=== PATIENT | male | born 1990 | race Caucasian/White ===

== ENCOUNTER 2020-07-23 14:30 | Emergency (ER) | payer OTHER, SELFPAY ==
[2020-07-23 14:32] VITALS: BP 116/78; PULSE 70; RESP 16; TEMP 36.8; O2SAT 99; BMI 29.2
--- NOTE | 2020-07-23 16:53 | ED_ITS ---
HPI - Back Pain/Injury General Chief Complaint: Back Pain/Injury Stated Complaint: back pain Time Seen by Provider: 07/23/20 16:53 History of Present Illness HPI Narrative: Patient complains of back pain shooting into his legs for 2 years with tingling into his legs no weakness no loss of sensation no bowel or bladder problems. Initial injury was a lifting injury at work, he had been seen for epidural injections physical therapy, he had 1 visit with a surgeon who recommended wait and see if it gets better on his own. He had an MRI he says that showed herniated discs, he comes today as the pain is flaring up as a head done multiple times before since his injury 2 years ago, no new acute injury Related Data Previous Rx's Medication Instructions Recorded oxycodone-acetaminophen [Percocet] 1 tab PO Q6H PRN #14 tab 07/23/20 prednisone 60 mg PO DAILY 3 Days #9 tab 07/23/20 Allergies Allergy/AdvReac Type Severity Reaction Status Date / Time No Known Allergies Allergy Verified 07/23/20 14:35 [No Known Allergies*] Review of Systems Review of Systems: Positive for back pain radiating to the legs Negative no numbness no weakness no paresthesias no incontinence, no neck pain no chest pain no shortness of breath no abdominal pain no urinary symptoms no incontinence no burning no frequency, skin no rashes, no fever no chills Yes all other systems are reviewed and are negative PMFSH Past Medical History Source: nursing notes reviewed Medical History (Updated 07/24/20 @ 00:00 by Background Daemon) Chronic back pain Herniated disc Pinched nerve Social History Social History Advance Directives: No Advance Directives Information Provided: No Physical Exam Vital Signs: Vital Signs: Last Vital Signs Temp 98.2 F 07/23/20 14:32 Pulse 70 07/23/20 14:32 Resp 16 07/23/20 14:32 BP 116/78 07/23/20 14:32 Pulse Ox 99 07/23/20 14:32 Body Mass Index 29.2 General appearance is A&O x3, no acute distress Head is normocephalic atraumatic The neck is supple and nontender The chest is clear to auscultation with full symmetric equal breath sounds, no chest wall tenderness The heart rate and rhythm regular no murmur Abdomen soft nontender The back had lower lumbar paraspinal tenderness bilaterally, no focal bony tenderness no skin rashes no redness no warmth, there is no CVA tenderness, pain was easily reproduced with movement Extremities full range of motion x4 Neuro motor is 5/5 x4 and sensation was intact and symmetrical Course Course Course Narrative: Patient treated for musculoskeletal back pain and discharged and he will follow with [facility] where he has been seen before and his regular doctor Discharge Plan Discharge Clinical Impression: Lumbar radiculopathy Patient Disposition: Home, Self-Care Instructions: Back Pain (ED) Additional Instructions: [facility] back [facility] and your doctor Return any worse condition Prescriptions: New prednisone 20 mg tablet 60 mg PO DAILY 3 Days Qty: 9 RF: 0 oxycodone-acetaminophen [Percocet] 5-325 mg tablet 1 tab PO Q6H PRN (Reason: pain) Qty: 14 RF: 0 Interventions: ED Discharge Assessment Last Done: 07/23/20 18:09 Discharge Date/Time: 07/23/20 18:10
[2020-07-23] MEDS: predniSONE 20 MG TABLET 60 MG PO (18:00)
== END 2020-07-23 18:10 | disposition home or self-care (01) ==
PROVIDERS: Emergency Provider Emergency Medicine
DX: M54.16 Radiculopathy, lumbar region (principal); G89.29 Other chronic pain; M54.42 Lumbago with sciatica, left side; M54.41 Lumbago with sciatica, right side
CPT/HCPCS: 99283

== ENCOUNTER 2020-09-17 12:05 | Outpatient (REF) | payer OTHER, SELFPAY ==
--- NOTE | ~2020-09-17 | XR_ITS ---
EXAMINATION: XR LUMBAR SPINE: 3 VIEWS XR PELVIS: ONE VIEW CLINICAL INFORMATION: Low back pain COMPARISON: None FINDINGS / IMPRESSION Lumbar spine: No acute fracture or traumatic malalignment. Vertebral body heights and disc spaces are preserved. Sacroiliac joints unremarkable. Paraspinal soft tissues are normal. Pelvis: No fractures. Pelvic ring intact. Femoral heads are spherical. Small bilateral acetabular osteophytes. Soft tissues unremarkable.
[2020-09-17 14:04] LABS: MANUAL DIFF FLAG NO
[2020-09-17 14:14] LABS: Basophils Percent Auto 0.4 % (0-2); Eosinophils Absolute Auto 0.1 X10*3/uL (0.0-0.4); Eosinophils Percent Auto 1.2 % (0-4); Hematocrit 35.8 % (42-52); Imm Gran Abs Auto 0.02 X10*3/uL (0.00-0.03); Imm Gran Pct Auto 0.3 % (0.0-0.4); Lymphocytes Percent Auto 27.9 % (20-40); Mean Corpuscular HGB Conc 33.5 g/dl (31.0-36.0); Mean Corpuscular Hemoglobin 31.8 pg (27.0-33.0); Mean Platelet Volume 10.6 fL (9.4-12.4); Monocytes Absolute Auto 0.4 X10*3/uL (0.1-1.2); Monocytes Percent Auto 5.4 % (2-11); Neutrophils Absolute Auto 4.7 X10*3/uL (2.0-8.3); Neutrophils Percent Auto 64.8 % (45-73); Platelet Count 229 X10*3/uL (160-400); Red Blood Count 3.77 X10*6/uL (4.60-5.80); Red Cell Distribution Width 14.3 % (11.0-16.0); White Blood Count 7.3 X10*3/uL (4.8-10.8)
[2020-09-17 14:51] LABS: Erythrocyte Sedimentation Rate 12 MM/HR (0-15)
[2020-09-17 15:01] LABS: Alanine Aminotransferase 111 U/L (0-40); Albumin Level 4.9 g/dL (3.5-5.0); Alkaline Phosphatase 54 U/L (39-117); Anion Gap 18 (12-20); Aspartate Amino Transferase 88 U/L (5-37); Bilirubin Total 0.7 mg/dL (0.0-1.0); Blood Urea Nitrogen 19 mg/dL (9-16); C Reactive Protein 0.05 mg/dL (< or = 0.50); Calcium 9.6 mg/dL (8.4-10.2); Carbon Dioxide 21 mmol/L (22-29); Chloride 105 mmol/L (96-108); Estimated Glomerular Filt Rate 49; Glucose Random 66 mg/dL (60-115); Potassium 4.5 mmol/L (3.3-5.1); Sodium 139 mmol/L (135-145); Total Protein 8.8 g/dL (6.5-8.0)
[2020-09-19 21:26] LABS: TS Negative Control Passed; TS Panel A 0; TS Panel B 0; TS Positive Control Passed; TSpotTB Negative (SeeBelow)
[2020-09-20 08:17] LABS: HBsAGNum1 0.14 S/CO (0.00-0.99); Hepatitis B Surface Antigen Negative (Negative); ~HepC Num1 0.11 S/CO (0.00-0.79); ~Hepatitis C Antibody Nonreactive (Nonreactive)
[2020-09-20 08:30] LABS: Hepatitis B Core Antibody Nonreactive (Nonreactive); ~Hepatitis B Surface Antibody NONREACTIVE (Nonreactive)
[2020-09-22 08:37] LABS: HBc Num1 0.07 S/CO (0.00-0.79); Hepatitis A Antibody IgM 0.18 Index (0-0.79); ~Hepatitis A Antibody IgM Nonreactive (Nonreactive)
[2020-09-24 11:32] LABS: HLA B27 Positive (Negative)
== END 2020-09-17 12:06 | disposition home or self-care (01) ==
LOC: HO.LAB 12:05
PROVIDERS: Visit Provider Student in an Organized Health Care Education/Training Program
DX: M54.5 Low back pain (principal)
CPT/HCPCS: 36415; 72100; 72170; 80053; 85025; 85652; 86140; 86481; 86704; 86706; 86709; 86803; 86812; 87340; 99202

== ENCOUNTER 2020-09-24 09:06 | Outpatient (REF) | payer OTHER, SELFPAY ==
--- NOTE | ~2020-09-24 | US_ITS ---
EXAMINATION: US ABDOMEN COMPLETE CLINICAL INFORMATION: Abnormal liver function tests. COMPARISON: Previous CT May 2019 TECHNIQUE: Real-time imaging of the abdominal viscera. FINDINGS: PANCREAS: Not well visualized due to bowel gas. ABDOMINAL AORTA: The proximal, mid, and distal segments are normal in caliber. INFERIOR VENA CAVA: Visualized portions are normal. LIVER: Normal. The liver is normal in size. The liver contour is normal. Parenchymal echogenicity is normal. No focal hepatic lesion. There is no intrahepatic biliary duct dilatation seen. GALLBLADDER: There are gallstones in the gallbladder. The gallbladder is normal in size. The gallbladder wall is normal. There is no pericholecystic fluid. COMMON BILE DUCT: Normal in caliber measuring 0.2 cm in diameter. RIGHT KIDNEY: Normal. No hydronephrosis. No renal calculi or focal parenchymal lesions. The kidney measures 10 cm in maximum dimension. LEFT KIDNEY: Normal. No hydronephrosis. No renal calculi or focal parenchymal lesions. The kidney measures 10 cm in maximum dimension. SPLEEN: Normal. The spleen measures 9 cm in maximum dimension. FREE FLUID: None. US/US abdomen complete IMPRESSION: Gallstones. Limited visualization of the pancreas.
== END 2020-09-24 09:07 | disposition home or self-care (01) ==
LOC: HO.HMGCX 09:06
PROVIDERS: Visit Provider Student in an Organized Health Care Education/Training Program
DX: R79.89 Other specified abnormal findings of blood chemistry (principal)
CPT/HCPCS: 76700

== ENCOUNTER 2020-10-11 12:13 | Outpatient (REF) | payer OTHER, SELFPAY ==
[2020-10-11 13:44] LABS: Alanine Aminotransferase 72 U/L (0-40); Alkaline Phosphatase 51 U/L (39-117); Anion Gap 14 (12-20); Aspartate Amino Transferase 54 U/L (5-37); Bilirubin Total 0.6 mg/dL (0.0-1.0); Blood Urea Nitrogen 17 mg/dL (9-16); Calcium 9.8 mg/dL (8.4-10.2); Carbon Dioxide 29 mmol/L (22-29); Chloride 101 mmol/L (96-108); Estimated Glomerular Filt Rate 47; Glucose Random 86 mg/dL (60-115); Potassium 4.2 mmol/L (3.3-5.1); Sodium 140 mmol/L (135-145); Total Protein 8.4 g/dL (6.5-8.0)
== END 2020-10-11 12:14 | disposition home or self-care (01) ==
LOC: HO.LAB 12:13
PROVIDERS: Visit Provider Student in an Organized Health Care Education/Training Program
DX: R79.89 Other specified abnormal findings of blood chemistry (principal)
CPT/HCPCS: 36415; 80053

== ENCOUNTER → 2020-10-27 14:47 | Outpatient (BNVA) | payer OTHER, SELFPAY | PROVIDERS: Visit Provider Student in an Organized Health Care Education/Training Program | DX: M54.5 Low back pain (principal); E03.9 Hypothyroidism, unspecified; N28.9 Disorder of kidney and ureter, unspecified; R79.89 Other specified abnormal findings of blood chemistry | CPT/HCPCS: 99212 ==

== ENCOUNTER 2020-11-24 12:00 | Outpatient (REF) | payer OTHER, SELFPAY ==
[2020-11-24 14:59] LABS: Anion Gap 14 (12-20); Blood Urea Nitrogen 15 mg/dL (9-16); Calcium 9.8 mg/dL (8.4-10.2); Carbon Dioxide 29 mmol/L (22-29); Chloride 100 mmol/L (96-108); Estimated Glomerular Filt Rate 48; Glucose Random 92 mg/dL (60-115); Potassium 4.2 mmol/L (3.3-5.1); Sodium 139 mmol/L (135-145)
[2020-11-24 15:24] LABS: Free T4 (Free Thyroxine) < 0.40 ng/dL (0.71-1.85); Vitamin D 25-OH Total 14.4 ng/mL (>30)
[2020-11-24 19:45] LABS: Thyroid Stimulating Hormone > 100.00 uIU/mL (0.32-4.0)
[2020-11-25 09:11] LABS: Thyroglobulin Antibodies 200 IU/mL (< or = 1); Thyroid Peroxidase Antibodies 73 IU/mL (<9)
== END 2020-11-24 12:01 | disposition home or self-care (01) ==
LOC: HO.LAB 12:00
PROVIDERS: PCP Nurse Practitioner Family; Visit Provider Internal Medicine
DX: E03.9 Hypothyroidism, unspecified (principal); E55.9 Vitamin D deficiency, unspecified
CPT/HCPCS: 36415; 80048; 82306; 84439; 84443; 86376; 86800

== ENCOUNTER 2020-12-22 13:42 | Outpatient (REF) | payer OTHER, SELFPAY ==
[2020-12-22 15:45] LABS: Alanine Aminotransferase 60 U/L (0-40); Albumin Level 4.8 g/dL (3.5-5.0); Alkaline Phosphatase 56 U/L (39-117); Anion Gap 13 (12-20); Aspartate Amino Transferase 35 U/L (5-37); Bilirubin Total 0.6 mg/dL (0.0-1.0); Blood Urea Nitrogen 15 mg/dL (9-16); Calcium 9.8 mg/dL (8.4-10.2); Carbon Dioxide 28 mmol/L (22-29); Chloride 101 mmol/L (96-108); Estimated Glomerular Filt Rate > 60; Glucose Random 86 mg/dL (60-115); Potassium 4.1 mmol/L (3.3-5.1); Sodium 138 mmol/L (135-145); Total Protein 8.2 g/dL (6.5-8.0)
[2020-12-22 16:08] LABS: Ferritin 215 ng/mL (20-250)
[2020-12-23 21:33] LABS: Prot Elec - Albumin 4.9 g/dL (3.8-4.8); Prot Elec - Alpha1 0.2 g/dL (0.2-0.3); Prot Elec - Alpha2 0.5 g/dL (0.5-0.9); Prot Elec - Beta 1 0.4 g/dL (0.4-0.6); Prot Elec - Beta 2 0.5 g/dL (0.2-0.5); Prot Elec - Gamma 1.5 g/dL (0.8-1.7); Prot Elec - Total Protein 7.9 g/dL (6.1-8.1)
[2020-12-25 13:27] LABS: Mitochondrial Antibodies NEGATIVE (NEGATIVE)
[2020-12-27 21:02] LABS: Alpha 1 Anti-trypsin 110 mg/dL (83-199); Ceruloplasmin 22 mg/dL (18-36)
[2020-12-28 11:32] LABS: Smooth Muscle Antibody <20 U (<20)
== END 2020-12-22 13:43 | disposition home or self-care (01) ==
LOC: HO.LAB 13:42
PROVIDERS: Absent Provider Internal Medicine; PCP Nurse Practitioner Family; Referring Provider Nurse Practitioner Family; Visit Provider Physician Assistant
DX: R79.89 Other specified abnormal findings of blood chemistry (principal); E88.09 Other disorders of plasma-protein metabolism, not elsewhere classified; D64.9 Anemia, unspecified; R10.11 Right upper quadrant pain; R74.01 Elevation of levels of liver transaminase levels
CPT/HCPCS: 36415; 80053; 82103; 82390; 82728; 84155; 84165; 86255; 86256; 99212

== ENCOUNTER 2020-12-29 11:00 | Outpatient (RCR) | payer OTHER, SELFPAY ==
--- NOTE | 2020-11-26 09:05 | MHC.PT.EP ---
[facility] [place] Office [place] Office [place] Office [address] Amy Lee [address] [phone] F: [phone] F: [phone] F: [phone] F: [phone] Physical Therapy Plan of Care Date of Evaluation: Date of Surgery: Diagnosis: low back pain Assessment: 30 y/o male referred to PT with low back pain. His pain started 2 years ago while he was working. He lifted a heavy bag of cement, rotated, and felt LBP. Currently he had pain and difficulty with walking > 25min, lifting children, bending forward, donning/doffing shoes/socks, standing > 20min, and sitting > 10min. Of note, he waas diagnosed with hypothyroidism but never took his medications and now his thyroid are at critical levels. He has swollen face/ hands/ feet, reports muscular cramping, and burning B hands/feet. He will be starting thyroid medications today and therefore we held exercises today until he starts medications for one week. Examination shows decreased lumbar AROM, decreased hip/core strength, increased muscle spasm paraspinals, impaired gait pattern, and noted swelling of face/hands/feet. S/s consistent with lumbar derangement as well as noted thryoid sx. Recommend PT 2x/week for 5 weeks to address impairments, implement HEP, and optimize functional mobility. Will hold first session for 1-2 weeks for pt to take thyroid medications initially. Frequency and Duration: The patient will be seen 2x/week for 5 weeks Short Term Goals: 3 weeks 1. I with HEP 2. Pt will improve lumbar AROM to WNL 3. Pt will demonstrate log roll technique Seam Feller Goals: 5 weeks 1. I with HEP and self management of sx 2. Pt will be able to lift his children with pain < 3/10 3. Pt will be able to walk > 45min with pain < 3/10 Treatment Plan: Modalities to reduce pain, spasms and effusion. Manual therapy to restore motion and function. Therapeutic exercise to improve strength and flexibility. Neuromuscular re-education for posture and balance. Therapeutic activities to return to functional activities of daily living. Electronically signed by: Haily Blackmon PT Please sign and return to therapist. Thank you for your referral.
--- NOTE | 2021-01-06 08:23 | MHC.PT.DC ---
[facility] [place] Office [place] Office [place] Office [address] Amy Lee 140 [facility] [phone] F: [phone] F: [phone] F: [phone] F: [phone] Physical Therapy Discharge Report Diagnosis: low back pain Date of Surgery: Date of Evaluation: 11/26/20 Date of Discharge: 01/06/21 Treatments to Date: 5 Cancellations to Date: 1 No Shows to Date: 2 Discharge Status: Visit Non-compliance Discharge Summary: Pt was making good progress however d/c secondary to noncompliance with scheduling policy Electronically signed by: Haily Blackmon PT Please sign and return to therapist. Thank you for your referral.
== END 2021-11-23 13:35 | disposition home or self-care (01) ==
LOC: HO.PTCHIC 11:00
PROVIDERS: PCP Nurse Practitioner Family; Visit Provider Student in an Organized Health Care Education/Training Program
DX: M54.5 Low back pain (principal)
CPT/HCPCS: 97110; 97112; 97140; 97161; 97530

== ENCOUNTER 2021-01-17 10:06 | Outpatient (REF) | payer OTHER, SELFPAY ==
--- NOTE | ~2021-01-17 | US_ITS ---
EXAMINATION: US THYROID CLINICAL INFORMATION: Hypothyroidism COMPARISON: None TECHNIQUE: Linear transducer grayscale and color Doppler examination with attention to the region of the thyroid. FINDINGS: SIZE: Measurements of the thyroid lobes and nodules are given in sagittal, anteroposterior and transverse dimensions respectively. Right Thyroid Lobe: 4.3 x 1.2 x 1.2 cm, volume 3.2 mL. Parenchyma: The gland echotexture is heterogeneous. Thyroid vascularity is normal. Left Thyroid Lobe: 4.5 x 1.3 x 1.2 cm, volume 3.7 mL. Parenchyma: The gland echotexture is heterogeneous. Thyroid vascularity is normal. Isthmus: 0.3 cm in maximum AP dimension. No focal thyroid nodule is seen. NODES: No lymphadenopathy is seen in the tissue surrounding the thyroid gland. US/US thyroid IMPRESSION: Small heterogeneous thyroid gland suggestive of old thyroiditis. .
== END 2021-01-17 10:07 | disposition home or self-care (01) ==
LOC: HO.US 10:06
PROVIDERS: PCP Nurse Practitioner Family; Visit Provider Internal Medicine
DX: E03.9 Hypothyroidism, unspecified (principal)
CPT/HCPCS: 76536

== ENCOUNTER → 2021-03-16 13:04 | Outpatient (BNVA) | payer OTHER, SELFPAY | PROVIDERS: PCP Nurse Practitioner Family; Visit Provider Physician Assistant ==

== ENCOUNTER → 2021-04-19 08:12 | Outpatient (BNVA) | payer OTHER, SELFPAY | PROVIDERS: PCP Nurse Practitioner Family; Referring Provider Nurse Practitioner Family; Visit Provider Physician Assistant ==

== ENCOUNTER 2021-05-17 10:29 | Outpatient (REF) | payer OTHER, SELFPAY ==
[2021-05-17 10:49] LABS: MANUAL DIFF FLAG NO
[2021-05-17 11:16] LABS: Basophils Percent Auto 0.3 % (0-2); Eosinophils Absolute Auto 0.1 X10*3/uL (0.0-0.4); Eosinophils Percent Auto 1.2 % (0-4); Hemoglobin 13.2 g/dl (14.0-18.0); Imm Gran Abs Auto 0.02 X10*3/uL (0.00-0.03); Imm Gran Pct Auto 0.3 % (0.0-0.4); Lymphocytes Absolute Auto 1.5 X10*3/uL (1.2-4.9); Lymphocytes Percent Auto 22.2 % (20-40); Mean Corpuscular Volume 90.9 fL (80-98); Monocytes Absolute Auto 0.5 X10*3/uL (0.1-1.2); Monocytes Percent Auto 7.3 % (2-11); Neutrophils Absolute Auto 4.7 X10*3/uL (2.0-8.3); Neutrophils Percent Auto 68.7 % (45-73); Platelet Count 273 X10*3/uL (160-400); Red Cell Distribution Width 12.7 % (11.0-16.0); White Blood Count 6.8 X10*3/uL (4.8-10.8)
[2021-05-17 12:07] LABS: Free T4 (Free Thyroxine) 0.55 ng/dL (0.71-1.85)
[2021-05-17 12:22] LABS: Iron 70 mcg/dL (45-160); Percent Iron Saturation 33 % (15-50); Total Iron Binding Capacity 212 mcg/dL (228-428); Unsaturated Iron Binding 142 ug/dL
[2021-05-17 12:27] LABS: Folate 10.5 ng/mL (> or = 4.0); Vitamin B12 551 pg/mL (200-900)
[2021-05-17 12:40] LABS: Ferritin 114 ng/mL (20-250)
[2021-05-17 12:46] LABS: Thyroid Stimulating Hormone > 100.00 uIU/mL (0.32-4.0)
[2021-05-19 16:11] LABS: Transglutaminase IgA <1.0 U/mL
[2021-05-22 11:17] LABS: Endomysial IgA Antibody Negative (Negative)
== END 2021-05-17 10:30 | disposition home or self-care (01) ==
LOC: HO.LAB 10:29
PROVIDERS: Absent Provider Internal Medicine; PCP Nurse Practitioner Family; Visit Provider Physician Assistant
DX: E03.9 Hypothyroidism, unspecified (principal); R19.7 Diarrhea, unspecified; K62.5 Hemorrhage of anus and rectum; D64.9 Anemia, unspecified
CPT/HCPCS: 36415; 82607; 82728; 82746; 83516; 83540; 84439; 84443; 85025; 86255; 86256

== ENCOUNTER 2021-06-21 09:33 | Outpatient (REF) | payer OTHER, SELFPAY ==
[2021-06-21 10:58] LABS: Alanine Aminotransferase 26 U/L (0-40); Albumin Level 4.4 g/dL (3.5-5.0); Alkaline Phosphatase 66 U/L (39-117); Anion Gap 12 (12-20); Aspartate Amino Transferase 22 U/L (5-37); Bilirubin Total 0.7 mg/dL (0.0-1.0); Blood Urea Nitrogen 10 mg/dL (9-16); Carbon Dioxide 28 mmol/L (22-29); Chloride 103 mmol/L (96-108); Estimated Glomerular Filt Rate > 60; Glucose Random 158 mg/dL (60-115); Potassium 4.6 mmol/L (3.3-5.1); Sodium 138 mmol/L (135-145); Total Protein 7.4 g/dL (6.5-8.0)
[2021-06-21 11:07] LABS: Thyroid Stimulating Hormone 2.27 uIU/mL (0.32-4.0)
[2021-06-21 11:08] LABS: Free T4 (Free Thyroxine) 1.42 ng/dL (0.71-1.85)
== END 2021-06-21 09:34 | disposition home or self-care (01) ==
LOC: HO.LAB 09:33
PROVIDERS: Student in an Organized Health Care Education/Training Program; Absent Provider Physician Assistant; PCP Nurse Practitioner Family; Visit Provider Internal Medicine
DX: E03.9 Hypothyroidism, unspecified (principal); R79.89 Other specified abnormal findings of blood chemistry
CPT/HCPCS: 36415; 80053; 84439; 84443

== ENCOUNTER → 2021-06-22 08:31 | Outpatient (BNVA) | payer OTHER, SELFPAY | PROVIDERS: PCP Nurse Practitioner Family; Visit Provider Internal Medicine ==

== ENCOUNTER 2021-08-04 08:23 | Inpatient (IN) | payer OTHER, SELFPAY ==
--- NOTE | ~2021-08-04 | MR_ITS ---
EXAMINATION: MR ABDOMEN WITHOUT CONTRAST CLINICAL INFORMATION: Rule out common bile duct stone COMPARISON: Previous abdominal ultrasound from yesterday and CT of the abdomen and pelvis May 2018 TECHNIQUE: MR abdomen is performed without gadolinium contrast. MRCP sequences were also performed. FINDINGS: LUNG BASES: The visualized lung bases are unremarkable. LIVER, GALLBLADDER, AND BILIARY TREE: The liver is normal in size, smooth in contour, and normal in signal. No focal hepatic lesion or biliary ductal dilatation is present. The common bile duct measures 3 to 4 mm. No common bile duct stone is seen. The gallbladder is normal in size. There are gallstones in the gallbladder. The gallbladder wall is normal. There is no pericholecystic fluid. PANCREAS: Unremarkable. SPLEEN: Unremarkable. ADRENAL GLANDS: Unremarkable. KIDNEYS AND URETERS: The kidneys are normal in size and shape. No hydronephrosis. No perinephric stranding. GASTROINTESTINAL TRACT: No bowel obstruction. No ascites or fluid collection. ABDOMINAL WALL: There is a small umbilical hernia containing fat. LYMPH NODES: No lymphadenopathy. VASCULAR: Unremarkable. OSSEOUS STRUCTURES: Marrow signal normal. MR/MR abdomen wo con IMPRESSION: Gallstones. Normal caliber intra and extrahepatic bile ducts. No common bile duct stone seen.
--- NOTE | ~2021-08-04 | US_ITS ---
EXAMINATION: US ABDOMEN LIMITED CLINICAL INFORMATION: Cholelithiasis. Rule out cholecystitis. COMPARISON: Abdominal ultrasound dated from 09/24/2020. TECHNIQUE: Real-time imaging of the gallbladder. FINDINGS: Cholelithiasis without gallbladder wall thickening nor pericholecystic fluid. There is a positive Ayala's sign. No gallbladder wall polyps or masses are seen. The common bile duct is dilated measuring up to 0.8 cm. US/US abdomen limited IMPRESSION: Cholelithiasis with a positive Ayala's sign raising the possibility of acute cholecystitis in the appropriate clinical context. However, there is no associated wall thickening nor pericholecystic fluid and findings remain overall indeterminate. There is new dilatation of the common bile duct up to 0.8 cm. Consider further evaluation with an MRCP.
[2021-08-04 08:34] VITALS: BP 104/55; PULSE 52; RESP 14; TEMP 36.1; O2SAT 100; BMI 23.3
[2021-08-04 09:34] LABS: Appearance Urine HAZY; Color Urine DK YELLOW; Glucose Urine UA NEG (NEG); Leukocyte Esterase Urine NEG (NEG); Nitrite Urine NEG (NEG); PH 5.5 (5.0-8.0); Specific Gravity - Urine >= 1.030 (1.005-1.025); Urine Blood NEG (NEG); Urine Ketones NEG (NEG); Urine Protein NEG (NEG-TRACE)
[2021-08-04 15:19] VITALS: BP 92/53; PULSE 53; RESP 16; TEMP 36.9; O2SAT 100
--- NOTE | 2021-08-04 16:14 | ED.ABDPAIN ---
HPI - Abdominal Pain General Chief Complaint: Abdominal Pain Stated Complaint: abd pain Time Seen by Provider: 08/04/21 16:14 Source: patient Mode of arrival: ambulatory Limitations: no limitations History of Present Illness HPI narrative: Patient history of gallstones been having pain in right upper quadrant for last few days got worse last night and when he had some fried food associated with nausea and vomiting no fever no chills patient had sonogram done last 1 10/10 which shows gallstones Related Data Previous Rx's Medication Instructions Recorded levothyroxine 100 mcg tablet 100 mcg PO DAILY 90 Days #90 tab 06/22/21 Allergies Allergy/AdvReac Type Severity Reaction Status Date / Time No Known Allergies Allergy Verified 06/22/21 09:32 [No Known Allergies*] Review of Systems Review of Systems Yes all other systems are reviewed and are negative Physical Exam Vital Signs: Vital Signs: Last Vital Signs Temp 98.5 F 08/04/21 15:19 Pulse 53 08/04/21 15:19 Resp 16 08/04/21 15:19 BP 92/53 L 08/04/21 15:19 Pulse Ox 100 08/04/21 15:19 BMI result Body Mass Index 23.3 Appearance: Alert. Oriented X3. No acute distress. Eyes: No pallor or icterus ENT: Pharynx normal. Oral Mucosa moist Neck: Normal inspection. Neck supple. CVS: Normal heart rate and rhythm. Pulses normal. Respiratory: No respiratory distress. Equal air entry bilateral, no wheezing/rales/rhonchi Abdomen: Soft, tenderness right upper quadrant no rebound tenderness or guarding Bowel sounds are present, no mass palpable, no CVA tenderness Skin: Skin warm and dry. Normal skin color. Normal skin turgor. Extremities: No lower extremity edema. No calf tenderness Neuro: Oriented X 3. No motor deficit. MDM - Abdominal Pain MDM Narrative Medical decision making narrative: Patient with cholelithiasis with dilated CBD with elevated LFT likely obstructive. Case discussed with Dr. Simone BETTENCOURT advised to admit MRCP in the morning Medical Records Attestation: I reviewed the patient's medical records. Lab Data Attestation: I reviewed the patient's lab results. Result diagrams: 08/04/21 16:36 08/04/21 16:36 Labs: Lab Results 01/13/22 01/13/22 01/13/22 Range/Units 09:21 16:36 16:36 WBC 6.2 (4.8-10.8) X10*3/uL RBC 4.49 L (4.60-5.80) X10*6/uL Hgb 13.8 L (14.0-18.0) g/dl Hct 41.1 L (42.0-52.0) % MCV 91.5 (80.0-98.0) fL MCH 30.7 (27.0-33.0) pg MCHC 33.6 (31.0-36.0) g/dl RDW 13.1 (11.0-16.0) % Plt Count 300 (160-400) X10*3/uL MPV 9.8 (9.4-12.4) fL Immature Gran % (Auto) 0.2 (0.0-0.4) % Neut % (Auto) 62.7 (45-73) % Lymph % (Auto) 29.0 (20-40) % [place] % (Auto) 7.7 (2-11) % Eos % (Auto) 0.2 (0-4) % Baso % (Auto) 0.2 (0-2) % Lymph # (Auto) 1.8 (1.2-4.9) X10*3/uL [place] # (Auto) 0.5 (0.1-1.2) X10*3/uL Eos # (Auto) 0.0 (0.0-0.4) X10*3/uL Baso # (Auto) 0.0 (0.0-0.2) X10*3/uL Abs Immat Gran (auto) 0.01 (0.00-0.03) X10*3/uL Absolute Neuts (auto) 3.9 (2.0-8.3) x10*3/uL Absolute Nucleated RBC 0.000 (0.0-0.012) X10*3/uL Nucleated RBC % (auto) 0.0 (0.0-0.2) /100WBC Sodium 139 (135-145) mmol/L Potassium 4.6 (3.3-5.1) mmol/L Chloride 104 (96-108) mmol/L Carbon Dioxide 26 (22-29) mmol/L Anion Gap 14 (12-20) BUN 8 L (9-16) mg/dL Creatinine 0.77 (0.5-1.4) mg/dL Estim Creat Clear Calc 114.2 Estimated GFR > 60 Random Glucose 83 D (60-115) mg/dL Lactic Acid (0.5-2.0) mmol/L Calcium 9.8 (8.4-10.2) mg/dL Total Bilirubin 2.4 H (0.0-1.0) mg/dL AST 860 H (5-37) U/L ALT 895 H (0-40) U/L Alkaline Phosphatase 147 H D (39-117) U/L Total Protein 7.4 (6.5-8.0) g/dL Albumin 4.1 (3.5-5.0) g/dL Lipase 35 (8-78) U/L Urine Color DK YELLOW Urine Appearance HAZY Urine pH 5.5 (5.0-8.0) Ur Specific [place] >= 1.030 H (1.005-1.025) Urine Protein NEG (NEG-TRACE) MG/DL Urine Glucose (UA) NEG (NEG) MG/DL Urine Ketones NEG (NEG) MG/DL Urine Blood NEG (NEG) Urine Nitrite NEG (NEG) Ur Leukocyte Esterase NEG (NEG) COVID-19 (HALLIE) (Negative) COVID-19 Clin Com 08/04/21 08/04/21 Range/Units 19:58 19:58 WBC (4.8-10.8) X10*3/uL RBC (4.60-5.80) X10*6/uL Hgb (14.0-18.0) g/dl Hct (42.0-52.0) % MCV (80.0-98.0) fL MCH (27.0-33.0) pg MCHC (31.0-36.0) g/dl RDW (11.0-16.0) % Plt Count (160-400) X10*3/uL MPV (9.4-12.4) fL Immature Gran % (Auto) (0.0-0.4) % Neut % (Auto) (45-73) % Lymph % (Auto) (20-40) % [place] % (Auto) (2-11) % Eos % (Auto) (0-4) % Baso % (Auto) (0-2) % Lymph # (Auto) (1.2-4.9) X10*3/uL [place] # (Auto) (0.1-1.2) X10*3/uL Eos # (Auto) (0.0-0.4) X10*3/uL Baso # (Auto) (0.0-0.2) X10*3/uL Abs Immat Gran (auto) (0.00-0.03) X10*3/uL Absolute Neuts (auto) (2.0-8.3) x10*3/uL Absolute Nucleated RBC (0.0-0.012) X10*3/uL Nucleated RBC % (auto) (0.0-0.2) /100WBC Sodium (135-145) mmol/L Potassium (3.3-5.1) mmol/L Chloride (96-108) mmol/L Carbon Dioxide (22-29) mmol/L Anion Gap (12-20) BUN (9-16) mg/dL Creatinine (0.5-1.4) mg/dL Estim Creat Clear Calc Estimated GFR Random Glucose (60-115) mg/dL Lactic Acid 1.8 (0.5-2.0) mmol/L Calcium (8.4-10.2) mg/dL Total Bilirubin (0.0-1.0) mg/dL AST (5-37) U/L ALT (0-40) U/L Alkaline Phosphatase (39-117) U/L Total Protein (6.5-8.0) g/dL Albumin (3.5-5.0) g/dL Lipase (8-78) U/L Urine Color Urine Appearance Urine pH (5.0-8.0) Ur Specific [place] (1.005-1.025) Urine Protein (NEG-TRACE) MG/DL Urine Glucose (UA) (NEG) MG/DL Urine Ketones (NEG) MG/DL Urine Blood (NEG) Urine Nitrite (NEG) Ur Leukocyte Esterase (NEG) COVID-19 (HALLIE) Negative (Negative) COVID-19 Clin Com See Note Discharge Plan Discharge Clinical Impression: Cholecystitis, acute with cholelithiasis Qualifiers: Biliary obstruction: with biliary obstruction Qualified Code(s): K80.01 - Calculus of gallbladder with acute cholecystitis with obstruction Patient Disposition: Admitted As Inpatient [facility] Past Medical History Medical History Chronic back pain Herniated disc Pinched nerve Vitamin D deficiency Family History Family History Mother Diabetes Father Unknown family medical history Social History Social History Household Members: Family Alcohol intake: former Patient Tobacco Use Status: Never used Tobacco Advance Directives: No Advance Directives Information Provided: No Current occupational status: unemployed
[2021-08-04 16:56] LABS: Basophils Percent Auto 0.2 % (0-2); Eosinophils Percent Auto 0.2 % (0-4); Hematocrit 41.1 % (42.0-52.0); Hemoglobin 13.8 g/dl (14.0-18.0); Imm Gran Abs Auto 0.01 X10*3/uL (0.00-0.03); Imm Gran Pct Auto 0.2 % (0.0-0.4); Lymphocytes Absolute Auto 1.8 X10*3/uL (1.2-4.9); MANUAL DIFF FLAG NO; Mean Corpuscular HGB Conc 33.6 g/dl (31.0-36.0); Mean Corpuscular Hemoglobin 30.7 pg (27.0-33.0); Mean Corpuscular Volume 91.5 fL (80.0-98.0); Mean Platelet Volume 9.8 fL (9.4-12.4); Monocytes Absolute Auto 0.5 X10*3/uL (0.1-1.2); Monocytes Percent Auto 7.7 % (2-11); Neutrophils Absolute Auto 3.9 x10*3/uL (2.0-8.3); Neutrophils Percent Auto 62.7 % (45-73); Platelet Count 300 X10*3/uL (160-400); Red Blood Count 4.49 X10*6/uL (4.60-5.80); Red Cell Distribution Width 13.1 % (11.0-16.0); White Blood Count 6.2 X10*3/uL (4.8-10.8)
[2021-08-04] MEDS: 0.9 % Sodium Chloride 1,000 ML 999 ML IV (17:28)
[2021-08-04 17:42] LABS: Alanine Aminotransferase 895 U/L (0-40); Albumin Level 4.1 g/dL (3.5-5.0); Alkaline Phosphatase 147 U/L (39-117); Anion Gap 14 (12-20); Aspartate Amino Transferase 860 U/L (5-37); Bilirubin Total 2.4 mg/dL (0.0-1.0); Blood Urea Nitrogen 8 mg/dL (9-16); Calcium 9.8 mg/dL (8.4-10.2); Carbon Dioxide 26 mmol/L (22-29); Chloride 104 mmol/L (96-108); Creatinine Clr Calc Pharmacy 114.2; Estimated Glomerular Filt Rate > 60; Glucose Random 83 mg/dL (60-115); Lipase 35 U/L (8-78); Potassium 4.6 mmol/L (3.3-5.1); Sodium 139 mmol/L (135-145); Total Protein 7.4 g/dL (6.5-8.0)
--- NOTE | 2021-08-04 19:05 | PHA.MEDREC ---
Pharmacy Consult ? Medication Reconciliation Pharmacy has completed the medication reconciliation. Pt states that the only medication he takes is for his thyroid and that he is due for a refill but hasn't taken his levothyroxine in a week or two. Noemi Germain. PharmD
[2021-08-04 20:18] LABS: Lactic Acid 1.8 mmol/L (0.5-2.0)
[2021-08-04 20:24] LABS: IDNOW Serial# 9DD0AD1C
[2021-08-04 20:25] LABS: COVID-19 Test Negative (Negative)
[2021-08-04] MEDS: Piperacillin Sodium/Tazobactam 3.375 GM in 0.9 % Sodium Chloride 50 ML IV (20:28)
--- NOTE | 2021-08-04 21:40 | P.HPHOSP_ITS ---
History of Present Illness Date of Service: 08/04/21 Chief Complaint: abd pain 31 yo M with pmhx of hypothyroidism presents to the hospital with complaints of severe abdominal pain. reports pain started last night. located at the epigastric region radiating to the RUQ, associated with nausea, no vomiting. worst with eating. 05/01, constant. no relieving factors until he got to hospital and received iv medications for pain. no previous similar episode. pt denies any fever no chills. no diarrhea or constipation. no urinary sx. no sob, chest pain, no weakness, numbness or tingling. no headache or change in vision on arrival to the ED pt vitals were unremarkable but has a soft bp of 104/55 Labs sign for WBC count of 6.2, hemoglobin of 13.8, total bili of 2.4, AST of a 60, ALT of 895, alk-phos of 147 UA negative. Abdominal ultrasound showed cholelithiasis with a positive Ayala sign concerning for acute cholecystitis, there is new dilatation of the common bile duct up to 0.8 cm. Patient will be admitted for further management Review of Systems Review of Systems: Yes all other systems are reviewed and are negative [facility] Medical History Chronic back pain Herniated disc Pinched nerve Vitamin D deficiency Family History Mother Diabetes Father Unknown family medical history Social History Household Members: Family Alcohol intake: former Patient Tobacco Use Status: Never used Tobacco Advance Directives: No Advance Directives Information Provided: No Current occupational status: unemployed Meds Allergies Allergy/AdvReac Type Severity Reaction Status Date / Time No Known Allergies Allergy Verified 06/22/21 09:32 [No Known Allergies*] Physical Exam 2 Vital Signs and Narrative: Vital Signs: Last Vital Signs Temp 98.5 F 08/04/21 15:19 Pulse 53 08/04/21 15:19 Resp 16 08/04/21 15:19 BP 92/53 L 08/04/21 15:19 Pulse Ox 100 08/04/21 15:19 BMI result Body Mass Index 23.3 Const: General: cooperative and no acute distress Orientation/consciousness: patient oriented x3 Eyes: General: appearance normal, both eyes and all related structures Pupils: Equal, round and reactive pupils present Resp: Effort & Inspection: normal respiratory effort Auscultation: clear to auscultation bilaterally Cardio: Rate: regular rate Rhythm: regular rhythm GI: Other: has a right upper quadrant tenderness on deep palpation, no rebound or guarding Palpation (GI): Soft to palpation Auscultation: normal bowel sounds Skin: General skin exam: no rashes or lesions noted Neuro: General: patient oriented x3 Cranial nerves: Yes Equal, round and reactive pupils present Cognition (Neuro): normal cognition Extrem: General: Yes normal to inspection and Yes no pedal edema Results Labs CBC and Chem 7: 08/04/21 16:36 08/04/21 16:36 Labs: Laboratory Results - last 24 hr 08/04/21 08/04/21 08/04/21 09:21 16:36 16:36 MCV 91.5 MCH 30.7 MCHC 33.6 RDW 13.1 Plt Count 300 MPV 9.8 Immature Gran % (Auto) 0.2 Neut % (Auto) 62.7 Lymph % (Auto) 29.0 [place] % (Auto) 7.7 Eos % (Auto) 0.2 Baso % (Auto) 0.2 Lymph # (Auto) 1.8 [place] # (Auto) 0.5 Eos # (Auto) 0.0 Baso # (Auto) 0.0 Abs Immat Gran (auto) 0.01 Absolute Neuts (auto) 3.9 Absolute Nucleated RBC 0.000 Nucleated RBC % (auto) 0.0 Anion Gap 14 Estim Creat Clear Calc 114.2 Estimated GFR > 60 Random Glucose 83 D Lactic Acid Calcium 9.8 Total Bilirubin 2.4 H AST 860 H ALT 895 H Alkaline Phosphatase 147 H D Total Protein 7.4 Albumin 4.1 Lipase 35 Urine Color DK YELLOW Urine Appearance HAZY Urine pH 5.5 Ur Specific [place] >= 1.030 H Urine Protein NEG Urine Glucose (UA) NEG Urine Ketones NEG Urine Blood NEG Urine Nitrite NEG Ur Leukocyte Esterase NEG COVID-19 (HALLIE) COVID-19 Clin Com 08/04/21 08/04/21 19:58 19:58 MCV MCH MCHC RDW Plt Count MPV Immature Gran % (Auto) Neut % (Auto) Lymph % (Auto) [place] % (Auto) Eos % (Auto) Baso % (Auto) Lymph # (Auto) [place] # (Auto) Eos # (Auto) Baso # (Auto) Abs Immat Gran (auto) Absolute Neuts (auto) Absolute Nucleated RBC Nucleated RBC % (auto) Anion Gap Estim Creat Clear Calc Estimated GFR Random Glucose Lactic Acid 1.8 Calcium Total Bilirubin AST ALT Alkaline Phosphatase Total Protein Albumin Lipase Urine Color Urine Appearance Urine pH Ur Specific [place] Urine Protein Urine Glucose (UA) Urine Ketones Urine Blood Urine Nitrite Ur Leukocyte Esterase COVID-19 (HALLIE) Negative COVID-19 Clin Com See Note Imaging Radiologist's Impressions: Impressions Abdomen Ultrasound 08/04/21 16:54 IMPRESSION: Cholelithiasis with a positive Ayala's sign raising the possibility of acute cholecystitis in the appropriate clinical context. However, there is no associated wall thickening nor pericholecystic fluid and findings remain overall indeterminate. There is new dilatation of the common bile duct up to 0.8 cm. Consider further evaluation with an MRCP. Assessment and Plan (1) Cholecystitis, acute with cholelithiasis: Qualifiers: Biliary obstruction: with biliary obstruction Qualified Code(s): K80.01 - Calculus of gallbladder with acute cholecystitis with obstruction Status: Acute (2) Abdominal pain: Status: Acute 31-year-old male with past medical history of hypothyroidism presents to the hospital with complaints of abdominal found to have cholelithiasis with possible cholecystitis # abdominal pain - slightly secondary to cholelithiasis /cholecystitis - has dilated CBD, elevated LFTs abdominal ultrasound showed dilated CBD as well as cholelithiasis with a positive Ayala sign concering for cholecytitis - will treat with pain medication, antibitoics # Cheolelithiasis with possible cholecytitis - has murphys sign , US evidence of cholecystitis with dilated CBD - afebrile, no leukocytosis - will start IV abx - planned for MRCP/ERCP in AM - Gen surg consulted # Hypothydroidism - has not used meds in 2 wks due to loss of insurance - will resume levothyrosixne and will give script on discharge - will need follow up with PCP DVT ppx: scds in anticipation of surgical intervention/MRCP?ERCP Quality Stroke Does the patient have a stroke diagnosis?: No VTE Prior VTE?: No VTE Risk Level:: Medical - moderate - high VTE Device Contraindication: N/A - Device Ordered VTE Drug Contraindication: Treatment Not Indicated
[2021-08-04] MEDS: metroNIDAZOLE 500 MG TABLET PO (22:35)
[2021-08-04] MEDS: 0.9 % Sodium Chloride Flush 3 ML SYRINGE IVFLUSH (22:35)
[2021-08-04] MEDS: levoFLOXacin/D5W 750 MG/150 ML PIGGYBACK 100 MG IV (22:37)
[2021-08-05 00:10] VITALS: BP 96/48; PULSE 47; RESP 16; O2SAT 99
[2021-08-05] MEDS: metroNIDAZOLE 500 MG TABLET PO ×3 (06:22→22:09)
[2021-08-05] MEDS: Lactated Ringers 1,000 ML 999 ML IV (06:30)
[2021-08-05 06:36] LABS: MANUAL DIFF FLAG NO
[2021-08-05 06:43] LABS: Basophils Percent Auto 0.3 % (0-2); Eosinophils Absolute Auto 0.1 X10*3/uL (0.0-0.4); Eosinophils Percent Auto 1.4 % (0-4); Hematocrit 37.3 % (42.0-52.0); Hemoglobin 12.5 g/dl (14.0-18.0); Imm Gran Abs Auto 0.01 X10*3/uL (0.00-0.03); Imm Gran Pct Auto 0.1 % (0.0-0.4); Lymphocytes Absolute Auto 1.8 X10*3/uL (1.2-4.9); Lymphocytes Percent Auto 25.6 % (20-40); Mean Corpuscular HGB Conc 33.5 g/dl (31.0-36.0); Mean Corpuscular Hemoglobin 30.4 pg (27.0-33.0); Mean Corpuscular Volume 90.8 fL (80.0-98.0); Mean Platelet Volume 9.9 fL (9.4-12.4); Monocytes Absolute Auto 0.4 X10*3/uL (0.1-1.2); Monocytes Percent Auto 5.6 % (2-11); Neutrophils Absolute Auto 4.8 x10*3/uL (2.0-8.3); Platelet Count 282 X10*3/uL (160-400); Red Blood Count 4.11 X10*6/uL (4.60-5.80); White Blood Count 7.1 X10*3/uL (4.8-10.8)
[2021-08-05 07:08] LABS: Anion Gap 11 (12-20); Blood Urea Nitrogen 9 mg/dL (9-16); Calcium 8.9 mg/dL (8.4-10.2); Carbon Dioxide 25 mmol/L (22-29); Chloride 106 mmol/L (96-108); Creatinine Clr Calc Pharmacy 107.2; Estimated Glomerular Filt Rate > 60; Glucose Random 72 mg/dL (60-115); Potassium 4.2 mmol/L (3.3-5.1); Sodium 138 mmol/L (135-145)
[2021-08-05 07:13] VITALS: BP 95/63; PULSE 50; RESP 14; O2SAT 99
--- NOTE | 2021-08-05 07:29 | HO.PM.IMPN ---
Subjective Subjective Date of Service: 08/05/21 Interval History: abd pain Review of Systems ruq pain seems improving LFTs improving Physical Exam Vital Signs: Vital Signs: Last Vital Signs Temp 98.5 F 08/04/21 15:19 Pulse 50 08/05/21 07:13 Resp 14 08/05/21 07:13 BP 95/63 08/05/21 07:13 Pulse Ox 99 08/05/21 07:13 BMI result Body Mass Index 23.3 physical exam: Appearance: Alert.? Oriented X3.? not in distress.? cvs: rrr, [id number] , no murmur res: clear to auscultation ,no rhonchii or wheezing abd: no rebound or guarding , ruq pain seems improving, bs present. ext pulses present , no cyanosis. neuro: axo3 , nonfocal. Objective Data Active Medications Acetaminophen (Acetaminophen Supp 650 Mg Supp.Rect) 650 mg [place] Q6H PRN PRN Reason: Pain, Mild (Pain Scale 1-3) Levofloxacin (Levaquin) 750 mg in 150 mls @ 100 mls/hr IV Q24H [facility] Last Infusion: 08/05/21 00:10 Dose: 0 mls/hr Documented by: SHANTE Lactated Ringer's (Lr) 1,000 mls @ 999 mls/hr IV .Q1H1M [facility] Stop: 08/05/21 07:30 Last Infusion: 08/05/21 07:07 Dose: 0 mls/hr Documented by: SHANTE Levothyroxine Sodium (Levothyroxine Sodium 100 Mcg Tablet) 100 mcg PO DAILY [facility] Metronidazole (Metronidazole 500 Mg Tablet) 500 mg PO Q8H [facility] Last Admin: 08/05/21 06:22 Dose: 500 mg Documented by: SHANTE Morphine Sulfate (Morphine Sulfate 4 Mg/Ml Cartridge) 4 mg IVPUSH Q4H PRN; Protocol PRN Reason: Pain, Severe (Pain Scale 7-10) Ondansetron HCl (Ondansetron Hcl 4 Mg/2 Ml Vial) 4 mg IVPUSH Q8H PRN PRN Reason: Nausea and Vomiting Sodium Chloride (0.9 % Sodium Chloride Flush 3 Ml Syringe) 3 ml IVFLUSH QSHIFT [facility] Last Admin: 08/04/21 22:35 Dose: 3 ml Documented by: SHANTE Labs CBC & Chem 7: 08/05/21 06:28 08/05/21 06:28 Labs: Laboratory Results - last 24 hr 08/04/21 08/04/21 08/04/21 09:21 16:36 16:36 MCV 91.5 MCH 30.7 MCHC 33.6 RDW 13.1 Plt Count 300 MPV 9.8 Immature Gran % (Auto) 0.2 Neut % (Auto) 62.7 Lymph % (Auto) 29.0 [place] % (Auto) 7.7 Eos % (Auto) 0.2 Baso % (Auto) 0.2 Lymph # (Auto) 1.8 [place] # (Auto) 0.5 Eos # (Auto) 0.0 Baso # (Auto) 0.0 Abs Immat Gran (auto) 0.01 Absolute Neuts (auto) 3.9 Absolute Nucleated RBC 0.000 Nucleated RBC % (auto) 0.0 Anion Gap 14 Estim Creat Clear Calc 114.2 Estimated GFR > 60 Random Glucose 83 D Lactic Acid Calcium 9.8 Total Bilirubin 2.4 H AST 860 H ALT 895 H Alkaline Phosphatase 147 H D Total Protein 7.4 Albumin 4.1 Lipase 35 Urine Color DK YELLOW Urine Appearance HAZY Urine pH 5.5 Ur Specific Art >= 1.030 H Urine Protein NEG Urine Glucose (UA) NEG Urine Ketones NEG Urine Blood NEG Urine Nitrite NEG Ur Leukocyte Esterase NEG COVID-19 (HALLIE) COVID-19 Clin Com 08/04/21 08/04/21 08/05/21 19:58 19:58 06:28 MCV 90.8 MCH 30.4 MCHC 33.5 RDW 13.0 Plt Count 282 MPV 9.9 Immature Gran % (Auto) 0.1 Neut % (Auto) 67.0 Lymph % (Auto) 25.6 [place] % (Auto) 5.6 Eos % (Auto) 1.4 Baso % (Auto) 0.3 Lymph # (Auto) 1.8 [place] # (Auto) 0.4 Eos # (Auto) 0.1 Baso # (Auto) 0.0 Abs Immat Gran (auto) 0.01 Absolute Neuts (auto) 4.8 Absolute Nucleated RBC 0.000 Nucleated RBC % (auto) 0.0 Anion Gap Estim Creat Clear Calc Estimated GFR Random Glucose Lactic Acid 1.8 Calcium Total Bilirubin AST ALT Alkaline Phosphatase Total Protein Albumin Lipase Urine Color Urine Appearance Urine pH Ur Specific Art Urine Protein Urine Glucose (UA) Urine Ketones Urine Blood Urine Nitrite Ur Leukocyte Esterase COVID-19 (HALLIE) Negative COVID-19 Clin Com See Note 08/05/21 06:28 MCV MCH MCHC RDW Plt Count MPV Immature Gran % (Auto) Neut % (Auto) Lymph % (Auto) [place] % (Auto) Eos % (Auto) Baso % (Auto) Lymph # (Auto) [place] # (Auto) Eos # (Auto) Baso # (Auto) Abs Immat Gran (auto) Absolute Neuts (auto) Absolute Nucleated RBC Nucleated RBC % (auto) Anion Gap 11 L Estim Creat Clear Calc 107.2 Estimated GFR > 60 Random Glucose 72 Lactic Acid Calcium 8.9 D Total Bilirubin AST ALT Alkaline Phosphatase Total Protein Albumin Lipase Urine Color Urine Appearance Urine pH Ur Specific Art Urine Protein Urine Glucose (UA) Urine Ketones Urine Blood Urine Nitrite Ur Leukocyte Esterase COVID-19 (HALLIE) COVID-19 Clin Com Assessment and Plan (1) Abdominal pain: Status: Acute (2) Hypothyroidism: Status: Acute (3) Elevated LFTs: Status: Acute Assessment and Plan: 31-year-old male with past medical history of hypothyroidism presents to the hospital with complaints of abdominal found to have cholelithiasis with possible cholecystitis 1.abdominal pain -? slightly secondary to cholelithiasis /cholecystitis -? has dilated? CBD, elevated LFTs improvng abdominal ultrasound? showed dilated CBD as well as cholelithiasis with a positive? Ayala sign concering for cholecytitis mrcp added - will treat with pain medication, antibitoics 2. Cheolelithiasis with possible cholecytitis - has murphys sign , US evidence of cholecystitis with dilated CBD - afebrile, no leukocytosis - will start IV abx Gi and general surgery eval pending 3. Hypothydroidism- has not used meds in 2 wks due to loss of insurance - will resume levothyrosixne and will give script on discharge - will need follow up with PCP DVT ppx: scds in anticipation of surgical intervention/MRCP?ERCP Quality Stroke Does the patient have a stroke diagnosis?: No VTE Prior VTE?: No VTE Risk Level:: Medical - moderate - high VTE Device Contraindication: N/A - Device Ordered VTE Drug Contraindication: Treatment Not Indicated
[2021-08-05 08:00] VITALS: BP 119/51; PULSE 60; RESP 20; TEMP 36.6; O2SAT 99
[2021-08-05 08:17] LABS: Alanine Aminotransferase 556 U/L (0-40); Albumin Level 3.5 g/dL (3.5-5.0); Alkaline Phosphatase 122 U/L (39-117); Aspartate Amino Transferase 346 U/L (5-37); Bilirubin Direct 0.8 mg/dL (0.0-0.5); Bilirubin Total 1.9 mg/dL (0.0-1.0); Total Protein 6.1 g/dL (6.5-8.0)
[2021-08-05] MEDS: Levothyroxine Sodium 100 MCG TABLET PO (09:44)
[2021-08-05] MEDS: 0.9 % Sodium Chloride Flush 3 ML SYRINGE IVFLUSH ×3 (09:44→22:15)
--- NOTE | 2021-08-05 10:17 | P.CNGI_ITS ---
History of Present Illness Data of Consult Service Date: 08/05/21 Requesting physician: Pratik Lemon Primary Care Provider: Darci Thakur, [facility]- HPI Reason for consult: gallstones 31 yr old m HLA B27 pos, hypothyroidism, being seen for assessment of gallstones He had severe pain in the epigastric region radiating to the RUQ 0/10 in severity, worse with food, associated with nausea, but no vomiting. He denies jaundice, no marisol stools, no itching and no melena or diarrhea or constipation Labs on admission with elevated LFT total bili of 2.4, AST of a 60, ALT of 895, alk-phos of 147 and US imaging with pos Ayala sign and cholelithiasis with dilated CBD. Subsequent MRCP with nml CBD, gallstones noted. Today he feels much better and pain is very much diminished. LFT also downtrending. Review of Systems Review of Systems: Yes all other systems are reviewed and are negative Constitutional: Constitutional: Denies chills and Denies fever(s) Cardiovascular: Cardiovascular: Denies chest pain, Denies dyspnea and Denies dyspnea on exertion Respiratory: Respiratory: Denies cough, Denies dyspnea and Denies dyspnea on exertion Gastrointestinal: Gastrointestinal: Denies hematochezia and Denies change in bowel habits Genitourinary: Genitourinary: Denies hematuria and Denies difficulty urinating Musculoskeletal: Musculoskeletal: Denies back pain and Denies limited range of motion Neurologic: Denies focal weakness and Denies convulsions Psychiatric: Psychiatric: Denies depression and Denies mood swings Endocrine: Endocrine: Reports no additional endocrine complaints Hematologic/Lymphatic: Hematologic/Lymphatic: Reports no additional hematologic/lymphatic complaints [facility] Past Medical History Medical History (Updated 08/05/21 @ 13:06 by Tyler Pina MD) Chronic back pain Gallstones Herniated disc Hypothyroidism Pinched nerve Vitamin D deficiency Family History Family History Mother Diabetes Father Unknown family medical history Social History Social History Household Members: Significant Other Housing: Apartment Do you presently have visiting nurse or other home services: No Alcohol intake: former Patient Tobacco Use Status: Never used Tobacco service: No Current occupational status: unemployed Meds Allergies Allergy/AdvReac Type Severity Reaction Status Date / Time No Known Allergies Allergy Verified 06/22/21 09:32 [No Known Allergies*] Active Medications: Current Medications Acetaminophen (Acetaminophen Supp 650 Mg Supp.Rect) 650 mg [place] Q6H PRN PRN Reason: Pain, Mild (Pain Scale 1-3) Levofloxacin (Levaquin) 750 mg in 150 mls @ 100 mls/hr IV Q24H [facility] Last Infusion: 08/05/21 00:10 Dose: Infused Documented by: Levothyroxine Sodium (Levothyroxine Sodium 100 Mcg Tablet) 100 mcg PO DAILY [facility] Last Admin: 08/05/21 09:44 Dose: 100 mcg Documented by: Metronidazole (Metronidazole 500 Mg Tablet) 500 mg PO Q8H [facility] Last Admin: 08/05/21 06:22 Dose: 500 mg Documented by: Morphine Sulfate (Morphine Sulfate 4 Mg/Ml Cartridge) 4 mg IVPUSH Q4H PRN; Protocol PRN Reason: Pain, Severe (Pain Scale 7-10) Ondansetron HCl (Ondansetron Hcl 4 Mg/2 Ml Vial) 4 mg IVPUSH Q8H PRN PRN Reason: Nausea and Vomiting Sodium Chloride (0.9 % Sodium Chloride Flush 3 Ml Syringe) 3 ml IVFLUSH QSHIFT [facility] Last Admin: 08/05/21 09:44 Dose: 3 ml Documented by: Physical Exam Vital Signs: Vital Signs: Last Vital Signs Temp 97.9 F 08/05/21 08:00 Pulse 60 08/05/21 08:00 Resp 20 08/05/21 08:00 BP 119/51 L 08/05/21 08:00 Pulse Ox 99 08/05/21 08:00 BMI result Body Mass Index 23.3 Const: General: cooperative, comfortable and no acute distress Orientation/consciousness: patient oriented x3 Eyes: General: appearance normal, both eyes and all related structures Pupils: Equal, round and reactive pupils present Neck: Neck: Yes no lymphadenopathy Resp: Effort & Inspection: normal respiratory effort Auscultation: clear to auscultation bilaterally Cardio: Rate: regular rate Rhythm: regular rhythm GI: Other: No Ayala's sign, no significant tenderness in right upper quadrant Palpation (GI): Soft to palpation, nontender and no guarding Auscultation: normal bowel sounds Skin: General skin exam: no rashes or lesions noted Neuro: General: patient oriented x3 Cranial nerves: Yes Equal, round and reactive pupils present Cognition (Neuro): normal cognition Extrem: General: Yes normal to inspection and Yes no pedal edema Psych: Appearance: grossly normal Results Labs CBC & Chem 7: 08/05/21 06:28 08/05/21 06:28 Labs: Short CBC 08/04/21 08/05/21 Range/Units 16:36 06:28 WBC 6.2 7.1 (4.8-10.8) X10*3/uL Hgb 13.8 L 12.5 L (14.0-18.0) g/dl Hct 41.1 L 37.3 L (42.0-52.0) % Plt Count 300 282 (160-400) X10*3/uL BMP 08/04/21 08/05/21 16:36 06:28 Sodium 139 138 Potassium 4.6 4.2 Chloride 104 106 Carbon Dioxide 26 25 BUN 8 L 9 Creatinine 0.77 0.82 Calcium 9.8 8.9 D Liver Function 08/04/21 08/05/21 Range/Units 16:36 06:28 Total Bilirubin 2.4 H 1.9 H (0.0-1.0) mg/dL Direct Bilirubin 0.8 H (0.0-0.5) mg/dL AST 860 H 346 H (5-37) U/L ALT 895 H 556 H (0-40) U/L Alkaline Phosphatase 147 H D 122 H (39-117) U/L Albumin 4.1 3.5 (3.5-5.0) g/dL Imaging MRI - abdomen: Attestation: I personally reviewed and interpreted this imaging study as follows: My impression: gallstones, nml cbd Assessment and Plan (1) Gallstones: Status: Acute 1/ Symptomatic gallstones, seems to have had temp CBD obstruction and passed a stone. PLAN: 1/ No indication for ERCP at this time, f/u with surgical team for cholec ystectomy, will sign off, if any worsening sx or signs of CBD obstruction can refer back to GI service. Procedures Date of Service Date of Service: 08/05/21
--- NOTE | 2021-08-05 11:47 | MHC.CM.PN ---
met with pt who is idependent itu is not expected that he will require servceis when dcd pt has own transportaion home dc plan home no services
[2021-08-05 12:00] VITALS: BP 96/55; PULSE 66; RESP 18; TEMP 36.4; O2SAT 99
--- NOTE | 2021-08-05 13:02 | PM.CNGS ---
History of Present Illness Consult details Consult date: 08/05/21 Narrative: 31-year-old male admitted last night because of upper abdominal pain mostly in the epigastric area in the right upper quadrant. He says that this started about 24 hours prior to admission last night. This was constant but seemed to have worsened last night. He had some nausea because of the pain. He denies previous similar episodes. He does state that today, his pain seems to have resolved. He did not have any fever or chills. Review of Systems Constitutional: Constitutional: Denies chills and Denies fever(s) Cardiovascular: Cardiovascular: Denies chest pain, Denies dyspnea and Denies dyspnea on exertion Respiratory: Respiratory: Denies cough, Denies dyspnea and Denies dyspnea on exertion Gastrointestinal: Gastrointestinal: Denies hematochezia and Denies change in bowel habits Genitourinary: Genitourinary: Denies hematuria and Denies difficulty urinating Musculoskeletal: Musculoskeletal: Denies back pain and Denies limited range of motion Neurologic: Denies focal weakness and Denies convulsions Psychiatric: Psychiatric: Denies depression and Denies mood swings [facility] Past Medical History Medical History (Updated 08/05/21 @ 13:06 by Tyler Pina MD) Chronic back pain Gallstones Herniated disc Hypothyroidism Pinched nerve Vitamin D deficiency Family History Family History Mother Diabetes Father Unknown family medical history Social History Social History Household Members: Significant Other Housing: Apartment Do you presently have visiting nurse or other home services: No Alcohol intake: former Patient Tobacco Use Status: Never used Tobacco service: No Current occupational status: unemployed Meds Allergies Allergy/AdvReac Type Severity Reaction Status Date / Time No Known Allergies Allergy Verified 06/22/21 09:32 [No Known Allergies*] Active Medications: Current Medications Acetaminophen (Acetaminophen Supp 650 Mg Supp.Rect) 650 mg [place] Q6H PRN PRN Reason: Pain, Mild (Pain Scale 1-3) Levofloxacin (Levaquin) 750 mg in 150 mls @ 100 mls/hr IV Q24H [facility] Last Infusion: 08/05/21 00:10 Dose: Infused Documented by: Levothyroxine Sodium (Levothyroxine Sodium 100 Mcg Tablet) 100 mcg PO DAILY [facility] Last Admin: 08/05/21 09:44 Dose: 100 mcg Documented by: Metronidazole (Metronidazole 500 Mg Tablet) 500 mg PO Q8H [facility] Last Admin: 08/05/21 06:22 Dose: 500 mg Documented by: Morphine Sulfate (Morphine Sulfate 4 Mg/Ml Cartridge) 4 mg IVPUSH Q4H PRN; Protocol PRN Reason: Pain, Severe (Pain Scale 7-10) Ondansetron HCl (Ondansetron Hcl 4 Mg/2 Ml Vial) 4 mg IVPUSH Q8H PRN PRN Reason: Nausea and Vomiting Sodium Chloride (0.9 % Sodium Chloride Flush 3 Ml Syringe) 3 ml IVFLUSH QSHIFT [facility] Last Admin: 08/05/21 09:44 Dose: 3 ml Documented by: Physical Exam Vital Signs: Vital Signs: Last Vital Signs Temp 97.5 F 08/05/21 12:00 Pulse 66 08/05/21 12:00 Resp 18 08/05/21 12:00 BP 96/55 L 08/05/21 12:00 Pulse Ox 99 08/05/21 12:00 BMI result Body Mass Index 23.3 Const: General: comfortable and no acute distress Orientation/consciousness: patient oriented x3 Neck: Neck: Yes no lymphadenopathy Resp: Auscultation: clear to auscultation bilaterally Cardio: Rhythm: regular rhythm GI: Other: No Ayala's sign, no significant tenderness in right upper quadrant Palpation (GI): Soft to palpation, nontender and no guarding Neuro: General: patient oriented x3 Results Labs Result diagrams: 08/05/21 06:28 08/05/21 06:28 Labs: Abnormal lab results 08/04/21 08/04/21 08/05/21 Range/Units 16:36 16:36 06:28 RBC 4.49 L 4.11 L (4.60-5.80) X10*6/uL Hgb 13.8 L 12.5 L (14.0-18.0) g/dl Hct 41.1 L 37.3 L (42.0-52.0) % Anion Gap (12-20) BUN 8 L (9-16) mg/dL Total Bilirubin 2.4 H (0.0-1.0) mg/dL Direct Bilirubin (0.0-0.5) mg/dL AST 860 H (5-37) U/L ALT 895 H (0-40) U/L Alkaline Phosphatase 147 H D (39-117) U/L Total Protein (6.5-8.0) g/dL 08/05/21 Range/Units 06:28 RBC (4.60-5.80) X10*6/uL Hgb (14.0-18.0) g/dl Hct (42.0-52.0) % Anion Gap 11 L (12-20) BUN (9-16) mg/dL Total Bilirubin 1.9 H (0.0-1.0) mg/dL Direct Bilirubin 0.8 H (0.0-0.5) mg/dL AST 346 H (5-37) U/L ALT 556 H (0-40) U/L Alkaline Phosphatase 122 H (39-117) U/L Total Protein 6.1 L (6.5-8.0) g/dL Short CBC 08/04/21 08/05/21 Range/Units 16:36 06:28 WBC 6.2 7.1 (4.8-10.8) X10*3/uL Hgb 13.8 L 12.5 L (14.0-18.0) g/dl Hct 41.1 L 37.3 L (42.0-52.0) % Plt Count 300 282 (160-400) X10*3/uL BMP 08/04/21 08/05/21 16:36 06:28 Sodium 139 138 Potassium 4.6 4.2 Chloride 104 106 Carbon Dioxide 26 25 BUN 8 L 9 Creatinine 0.77 0.82 Calcium 9.8 8.9 D Liver Function 08/04/21 08/05/21 Range/Units 16:36 06:28 Total Bilirubin 2.4 H 1.9 H (0.0-1.0) mg/dL Direct Bilirubin 0.8 H (0.0-0.5) mg/dL AST 860 H 346 H (5-37) U/L ALT 895 H 556 H (0-40) U/L Alkaline Phosphatase 147 H D 122 H (39-117) U/L Albumin 4.1 3.5 (3.5-5.0) g/dL Urine 08/04/21 Range/Units 09:21 Urine Color DK YELLOW Urine Appearance HAZY Urine pH 5.5 (5.0-8.0) Ur Specific [place] >= 1.030 H (1.005-1.025) Urine Protein NEG (NEG-TRACE) MG/DL Urine Glucose (UA) NEG (NEG) MG/DL All other labs normal. Imaging Abdominal ultrasound report/results: report reviewed and image reviewed Assessment and Plan (1) Gallstones: Status: Acute He was admitted because of upper abdominal pain mostly epigastric area right upper quadrant. This has to have resolved completely today. His ultrasound on admission shows gallstones without radiographic evidence of cholecystitis. His bilirubin was however elevated 2.4 with an AST of 816 ALT of 890. These have all trended down today, with the his total bili now at 1.9. Overall clinical picture suggests passage of stone through the common bile duct. He is awaiting for his MRCP today. I would recommend a GI consult as well. Currently, on examination, he seems to be asymptomatic. I told him that if his MRCP shows a CBD stone, he will need to have an ERCP to remove this. He will eventually benefit cholecystectomy down the line to prevent future recurrences. I explained to him that this may be done as an inpatient or an outpatient. This will all depend on his clinical course. He will be followed by the surgical service over the weekend. He looks well overall and seems to be asymptomatic at this time. He can have clear liquids and this may be advanced as tolerated if he is not going for any ERCP. Procedures Date of Service Date of Service: 08/05/21
[2021-08-05 15:10] VITALS: BP 99/55; PULSE 65; RESP 16; TEMP 36.4; O2SAT 98
[2021-08-05 19:27] VITALS: BP 103/59; PULSE 60; RESP 18; TEMP 36.3; O2SAT 98
[2021-08-05] MEDS: levoFLOXacin/D5W 750 MG/150 ML PIGGYBACK 100 MG IV (22:14)
[2021-08-06 04:00] VITALS: BP 100/55; PULSE 64; RESP 17; TEMP 36.5; O2SAT 96
[2021-08-06] MEDS: metroNIDAZOLE 500 MG TABLET PO (04:35)
[2021-08-06 05:26] LABS: Hematocrit 39.7 % (42.0-52.0); Hemoglobin 13.1 g/dl (14.0-18.0); Mean Corpuscular Hemoglobin 30.1 pg (27.0-33.0); Mean Corpuscular Volume 91.3 fL (80.0-98.0); Platelet Count 302 X10*3/uL (160-400); Red Blood Count 4.35 X10*6/uL (4.60-5.80); Red Cell Distribution Width 12.7 % (11.0-16.0); White Blood Count 6.6 X10*3/uL (4.8-10.8)
[2021-08-06 05:51] LABS: Alanine Aminotransferase 394 U/L (0-40); Albumin Level 3.7 g/dL (3.5-5.0); Alkaline Phosphatase 114 U/L (39-117); Anion Gap 13 (12-20); Aspartate Amino Transferase 149 U/L (5-37); Bilirubin Direct 0.6 mg/dL (0.0-0.5); Bilirubin Total 1.5 mg/dL (0.0-1.0); Blood Urea Nitrogen 10 mg/dL (9-16); Calcium 9.5 mg/dL (8.4-10.2); Carbon Dioxide 25 mmol/L (22-29); Chloride 102 mmol/L (96-108); Creatinine Clr Calc Pharmacy 92.6; Estimated Glomerular Filt Rate > 60; Glucose Random 77 mg/dL (60-115); Potassium 4.4 mmol/L (3.3-5.1); Sodium 136 mmol/L (135-145); Total Protein 6.6 g/dL (6.5-8.0)
--- NOTE | 2021-08-06 07:39 | HO.PM.IMPN ---
Subjective Subjective Date of Service: 08/06/21 Interval History: cbd dilation Physical Exam Vital Signs: Vital Signs: Last Vital Signs Temp 97.7 F 08/06/21 04:00 Pulse 64 08/06/21 04:00 Resp 17 08/06/21 04:00 BP 100/55 L 08/06/21 04:00 Pulse Ox 96 08/06/21 04:00 BMI result Body Mass Index 23.3 Objective Data Active Medications Acetaminophen (Acetaminophen Supp 650 Mg Supp.Rect) 650 mg [place] Q6H PRN PRN Reason: Pain, Mild (Pain Scale 1-3) Levofloxacin (Levaquin) 750 mg in 150 mls @ 100 mls/hr IV Q24H [facility] Last Infusion: 08/05/21 23:55 Dose: 0 mls/hr Documented by: LANRE Levothyroxine Sodium (Levothyroxine Sodium 100 Mcg Tablet) 100 mcg PO DAILY [facility] Last Admin: 08/05/21 09:44 Dose: 100 mcg Documented by: DAYANA Metronidazole (Metronidazole 500 Mg Tablet) 500 mg PO Q8H [facility] Last Admin: 08/06/21 04:35 Dose: 500 mg Documented by: LANRE Morphine Sulfate (Morphine Sulfate 4 Mg/Ml Cartridge) 4 mg IVPUSH Q4H PRN; Protocol PRN Reason: Pain, Severe (Pain Scale 7-10) Ondansetron HCl (Ondansetron Hcl 4 Mg/2 Ml Vial) 4 mg IVPUSH Q8H PRN PRN Reason: Nausea and Vomiting Sodium Chloride (0.9 % Sodium Chloride Flush 3 Ml Syringe) 3 ml IVFLUSH QSHIFT [facility] Last Admin: 08/05/21 22:15 Dose: 3 ml Documented by: LANRE Labs CBC & Chem 7: 08/06/21 05:09 08/06/21 05:09 Labs: Laboratory Results - last 24 hr 08/05/21 08/06/21 08/06/21 06:28 05:09 05:09 MCV 91.3 MCH 30.1 MCHC 33.0 RDW 12.7 Plt Count 302 MPV 10.0 Absolute Nucleated RBC 0.000 Nucleated RBC % (auto) 0.0 Anion Gap 13 Estim Creat Clear Calc 92.6 Estimated GFR > 60 Random Glucose 77 Calcium 9.5 D Total Bilirubin 1.9 H 1.5 H Direct Bilirubin 0.8 H 0.6 H AST 346 H 149 H ALT 556 H 394 H Alkaline Phosphatase 122 H 114 Total Protein 6.1 L 6.6 Albumin 3.5 3.7 Microbiology Microbiology Results: Microbiology 08/04/21 19:58 Blood Culture - Preliminary Blood - Venous No growth after 24 hours. 08/04/21 19:58 Blood Culture - Preliminary Blood - Venous No growth after 24 hours. Quality Stroke Does the patient have a stroke diagnosis?: No VTE Prior VTE?: No VTE Risk Level:: Medical - moderate - high VTE Device Contraindication: N/A - Device Ordered VTE Drug Contraindication: Treatment Not Indicated
[2021-08-06 08:00] VITALS: BP 100/57; PULSE 62; RESP 18; TEMP 36.5; O2SAT 100
--- NOTE | 2021-08-06 08:38 | P.PNGS_ITS ---
Subjective Subjective Date of Service: 08/06/21 Interval history: Patient reports some mild discomfort in the right upper quadrant but generally feels much improved. He is hungry and feels he can tolerate a solid diet. He denies fever or chills. Physical Exam Vital Signs: Vital Signs: Last Vital Signs Temp 97.7 F 08/06/21 08:00 Pulse 62 08/06/21 08:00 Resp 18 08/06/21 08:00 BP 100/57 L 08/06/21 08:00 Pulse Ox 100 08/06/21 08:00 BMI result Body Mass Index 23.3 Const: General: no acute distress and well developed Nutritional Appearance: well nourished Orientation/consciousness: patient oriented x3 Limitations: no limitations Eyes: Sclerae: sclerae normal Resp: Effort & Inspection: normal respiratory effort GI: Palpation (GI): Soft to palpation, nontender, no guarding, not rigid and No Rebound tenderness present Percussion: Yes normal to percussion Rectal Exam - Male: Yes deferred Skin: General skin exam: no rashes or lesions noted Neuro: General: patient oriented x3 Extrem: General: Yes no clubbing, cyanosis or edema Objective Data Active Medications Acetaminophen (Acetaminophen Supp 650 Mg Supp.Rect) 650 mg [place] Q6H PRN PRN Reason: Pain, Mild (Pain Scale 1-3) Levofloxacin (Levaquin) 750 mg in 150 mls @ 100 mls/hr IV Q24H [facility] Last Infusion: 08/05/21 23:55 Dose: 0 mls/hr Documented by: LANRE Levothyroxine Sodium (Levothyroxine Sodium 100 Mcg Tablet) 100 mcg PO DAILY [facility] Last Admin: 08/05/21 09:44 Dose: 100 mcg Documented by: DAYANA Metronidazole (Metronidazole 500 Mg Tablet) 500 mg PO Q8H [facility] Last Admin: 08/06/21 04:35 Dose: 500 mg Documented by: LANRE Morphine Sulfate (Morphine Sulfate 4 Mg/Ml Cartridge) 4 mg IVPUSH Q4H PRN; Protocol PRN Reason: Pain, Severe (Pain Scale 7-10) Ondansetron HCl (Ondansetron Hcl 4 Mg/2 Ml Vial) 4 mg IVPUSH Q8H PRN PRN Reason: Nausea and Vomiting Sodium Chloride (0.9 % Sodium Chloride Flush 3 Ml Syringe) 3 ml IVFLUSH QSHIFT [facility] Last Admin: 08/05/21 22:15 Dose: 3 ml Documented by: LANRE Labs CBC & Chem 7: 08/06/21 05:09 08/06/21 05:09 Labs: Laboratory Results - last 24 hr 08/04/21 08/05/21 08/06/21 16:36 06:28 05:09 MCV 91.3 MCH 30.1 MCHC 33.0 RDW 12.7 Plt Count 302 MPV 10.0 Absolute Nucleated RBC 0.000 Nucleated RBC % (auto) 0.0 Sodium 139 138 Anion Gap Estim Creat Clear Calc Estimated GFR Random Glucose Calcium Total Bilirubin Direct Bilirubin AST ALT Alkaline Phosphatase Total Protein Albumin 08/06/21 05:09 MCV MCH MCHC RDW Plt Count MPV Absolute Nucleated RBC Nucleated RBC % (auto) Sodium 136 Anion Gap 13 Estim Creat Clear Calc 92.6 Estimated GFR > 60 Random Glucose 77 Calcium 9.5 D Total Bilirubin 1.5 H Direct Bilirubin 0.6 H AST 149 H ALT 394 H Alkaline Phosphatase 114 Total Protein 6.6 Albumin 3.7 Imaging MRI - abdomen: Attestation: I personally reviewed and interpreted this imaging study as follows: (Normal common bile duct, no stones) Radiologist's impression: Impressions Abdomen MRI 08/05/21 12:08 IMPRESSION: Gallstones. Normal caliber intra and extrahepatic bile ducts. No common bile duct stone seen. Microbiology Microbiology Results: Microbiology 08/04/21 19:58 Blood Culture - Preliminary Blood - Venous No growth after 24 hours. 08/04/21 19:58 Blood Culture - Preliminary Blood - Venous No growth after 24 hours. Procedures Date of Service Date of Service: 08/06/21 Progress Note: A&P Assessment and plan (1) Cholecystitis, acute with cholelithiasis: Status: Acute (2) Elevated LFTs: Status: Acute Assessment and Plan: 31-year-old male patient with complaints of abdominal pain in the right upper quadrant found to have gallstones and elevated liver function tests. He feels improved today with no nausea or vomiting. He is hungry and like to try regular (vegan) food. Liver functions are improving and his MRCP reveals no gallstones within the common bile duct. He may be discharged home today of tolerating regular diet and should follow up with Dr. Pina as an outpatient to discuss elective laparoscopic cholecystectomy. Discussed with Dr. Lemon. Fall Risk Details Current Medications: Current Medications Acetaminophen (Acetaminophen Supp 650 Mg Supp.Rect) 650 mg [place] Q6H PRN PRN Reason: Pain, Mild (Pain Scale 1-3) Levofloxacin (Levaquin) 750 mg in 150 mls @ 100 mls/hr IV Q24H [facility] Last Infusion: 08/05/21 23:55 Dose: Infused Documented by: Levothyroxine Sodium (Levothyroxine Sodium 100 Mcg Tablet) 100 mcg PO DAILY [facility] Last Admin: 08/05/21 09:44 Dose: 100 mcg Documented by: Metronidazole (Metronidazole 500 Mg Tablet) 500 mg PO Q8H [facility] Last Admin: 08/06/21 04:35 Dose: 500 mg Documented by: Morphine Sulfate (Morphine Sulfate 4 Mg/Ml Cartridge) 4 mg IVPUSH Q4H PRN; Protocol PRN Reason: Pain, Severe (Pain Scale 7-10) Ondansetron HCl (Ondansetron Hcl 4 Mg/2 Ml Vial) 4 mg IVPUSH Q8H PRN PRN Reason: Nausea and Vomiting Sodium Chloride (0.9 % Sodium Chloride Flush 3 Ml Syringe) 3 ml IVFLUSH QSHIFT [facility] Last Admin: 08/05/21 22:15 Dose: 3 ml Documented by: Time Spent With Patient Time: Total time spent is greater than 50% in coordination of care (as documented) at patient's floor/unit and/or counseling patient: Time with patient: 15 - 24 minutes Quality Stroke Does the patient have a stroke diagnosis?: No VTE Prior VTE?: No VTE Risk Level:: Medical - moderate - high VTE Device Contraindication: N/A - Device Ordered VTE Drug Contraindication: Treatment Not Indicated
[2021-08-06] MEDS: 0.9 % Sodium Chloride Flush 3 ML SYRINGE IVFLUSH (09:01)
[2021-08-06] MEDS: Levothyroxine Sodium 100 MCG TABLET PO (09:01)
--- NOTE | 2021-08-06 10:07 | MHC.CM.PN ---
PT CLEARED FOR D/C HOME SELF-CARE, PT HAS TRANSPORT HOME.
--- NOTE | 2021-08-07 15:29 | PM.DS ---
DS: Providers Provider Date of Service: 08/06/21 Date of admission: 08/04/21 21:40 Primary care physician: CIARA Carrillo Consults: 08/04/21 22:06 Consult to Gastroenterology Routine Consulting Provider: Ca Nichols Reason for consultation: ERCP Has provider been notified: Yes 08/05/21 06:38 Consult to General Surgery Routine Consulting Provider: Tyler Pina Reason for consultation: cholelithiasis with cholecystitis Has provider been notified: No DS: Diagnosis Discharge Diagnosis (1) Cholecystitis, acute with cholelithiasis: Status: Acute (2) Elevated LFTs: Status: Acute DS: Summary Hospital Course Hospital Course: date of service and dsicharge : 08/06/21. 31 yo M with pmhx of hypothyroidism presents to the hospital with complaints of severe abdominal pain. reports pain started last night. located at the epigastric region radiating to the RUQ, associated with nausea, no vomiting. worst with eating. 10/10, constant. no relieving factors until he got to hospital and received iv medications for pain. no previous similar episode. pt denies any fever no chills. no diarrhea or constipation. no urinary sx. no sob, chest pain, no weakness, numbness or tingling. no headache or change in vision on arrival to the ED pt vitals were unremarkable but has a soft bp of 104/55 Labs sign for? WBC count of 6.2, hemoglobin of 13.8, total bili of 2.4, AST of a 60, ALT of 895, alk-phos of 147 UA negative.? Abdominal ultrasound showed? cholelithiasis with a positive Ayala sign concerning for acute cholecystitis, there is new dilatation of the common bile duct up to 0.8 cm. Hospital course: patient came with abdominal pain right upper quadrant and found to have elevated LFTs- possibly had passed the CBD stone, MRCP negative. abdominal ultrasound also shows possible cholecystitis acute- started on IV antibiotics, seen by GI and surgery for above: since patient abdominal pain is resolved and LFTs are improving discussed with the surgery and GI patient will go home with p.o. antibiotics. elective cholecystectomy outpatient with Dr. Pina. avoid tylenol And other medications which can interfere with liver function. monitor LFTs with PCP outpatient. Above management discussed with the patient in detail length he understand and in agreement with the above plan, time spent 50 minutes and 50% time spent on counseling. Significant findings: As above. Procedures performed: None. Treatment and response: As above. Complications: None. Time Spent with Patient Time attestation: Total time spent providing and/or coordinating discharge services: Discharge coordination time: Greater than 30 minutes Quality: Stroke Does the patient have a stroke diagnosis?: No Physical Exam Vital Signs: Vital Signs: Last Vital Signs Temp 97.7 F 08/06/21 08:00 Pulse 62 08/06/21 08:00 Resp 18 08/06/21 08:00 BP 100/57 L 08/06/21 08:00 Pulse Ox 100 08/06/21 08:00 BMI result Body Mass Index 23.3 Appearance: Alert.? Oriented X3.? not in distress.? cvs: rrr, [id number] , no murmur res: clear to auscultation ,no rhonchii or wheezing abd: no rebound or guarding , nt, bs present. ext pulses present , no cyanosis. neuro: axo3 , nonfocal. DS: Data Data Completed and Pending Labs on day of discharge: Preliminary micro results at discharge 08/04/21 19:58 Blood Culture - Preliminary Blood - Venous No growth after 48 hours. 08/04/21 19:58 Blood Culture - Preliminary Blood - Venous No growth after 48 hours. Additional Comments Additional comments: total bilirubin: 1.5 , direct bilirubin:0.6 , ast 149, alt:394, alkaline phos: 114 Hepatitis-A IgM: Nonreactive, hepatitis-B surface antigen negative, hepatitis-B surface antibody reactive, hepatitis-B core antibody total nonreactive. Hepatitis C(EIA )antibody nonreactive. US/US abdomen limited IMPRESSION: ? Cholelithiasis with a positive Ayala's sign raising the possibility of acute cholecystitis in the appropriate clinical context. However, there is no associated wall thickening nor pericholecystic fluid and findings remain overall indeterminate. ? There is new dilatation of the common bile duct up to 0.8 cm. Consider further evaluation with an MRCP. MR/MR abdomen wo con IMPRESSION: Gallstones. Normal caliber intra and extrahepatic bile ducts. No common bile duct stone seen.? Discharge Plan Discharge Patient Disposition: Home, Self-Care Discharge Diagnosis: Acute cholecystitis, elevated LFT. Referrals: Darci Thakur FNP- [Primary Care Provider] - 1 Week Tyler Pina MD [Physician] - 1 Week (follow up outpatient) Discharge Medications: New metronidazole 500 mg Tablet 500 mg PO BID Qty: 12 RF: 0 levofloxacin 500 mg tablet 500 mg PO DAILY Qty: 6 RF: 0 Continued levothyroxine 100 mcg tablet 100 mcg PO DAILY 90 Days Qty: 90 RF: 3 Discharge Orders: Discharge Order (Routine); Ordered 08/06/21 Ordered By: Pratik Lemon Diet: advance to usual diet Activity on Discharge: As tolerated Stand Alone Forms: Patient Portal Discharge page, Work/School Release Other Ambulatory Orders: Basic Metabolic Panel (Routine) Timeframe: 1 Week Facility: [facility] - Location: Laboratory Ordered By: Pratik Lemon Liver Panel (Routine) Timeframe: 1 Week Facility: [facility] - Location: Laboratory Ordered By: Pratik Lemon Thyroid Stimulating Hormone (Routine) Timeframe: 1 Week Facility: [facility] - Location: Laboratory Ordered By: Pratik Lemon Care Plan Goals: patient came with abdominal pain right upper quadrant and found to have elevated LFTs- possibly had passed the CBD stone, MRCP negative. abdominal ultrasound also shows possible cholecystitis acute- started on IV antibiotics, seen by GI and surgery for above: since patient abdominal pain is resolved and LFTs are improving discussed with the surgery and GI patient will go home with p.o. antibiotics. elective cholecystectomy outpatient with Dr. Pina. avoid tylenol And other medications which can interfere with liver function. monitor LFTs with PCP outpatient. Health Concerns: As above. Plan of Treatment: As above. Assessment: As above. Discharge Date/Time: 08/06/21 10:28
== END 2021-08-06 10:28 | disposition home or self-care (01) ==
LOC: HO.ED 16:10 → HO.EDOVER 21:47 → HO.S3 08-05 07:02
PROVIDERS: Admitting Provider Internal Medicine; Emergency Provider Internal Medicine; PCP Nurse Practitioner Family; Visit Provider Internal Medicine
DX: K80.01 Calculus of gallbladder with acute cholecystitis with obstruction (principal); E03.9 Hypothyroidism, unspecified; Z20.822 Contact with and (suspected) exposure to COVID-19; Z79.890 Hormone replacement therapy; Z79.899 Other long term (current) drug therapy
CPT/HCPCS: 36415; 74181; 76705; 80048; 80053; 80076; 81003; 83605; 83690; 85025; 85027; 87040; 87635; 99218; 99285; J1956; J2543

== ENCOUNTER 2021-09-18 10:10 | Emergency (ER) | payer OTHER, SELFPAY ==
--- NOTE | ~2021-09-18 | US_ITS ---
EXAMINATION: US ABDOMEN LIMITED CLINICAL INFORMATION: Right upper quadrant pain. History of gallstones. COMPARISON: None TECHNIQUE: Real-time imaging of the right upper quadrant abdominal viscera. FINDINGS: PANCREAS: The pancreas is mostly obscured by gas.. LIVER: The liver is normal in size. The liver contour is normal. Parenchymal echogenicity is normal. No focal hepatic lesion. There is no intrahepatic biliary duct dilatation seen. GALLBLADDER: There are multiple echogenic shadowing mobile gallstones and in the neck of the gallbladder with no wall thickening seen. COMMON BILE DUCT: Normal in caliber measuring 0.3 cm in diameter. RIGHT KIDNEY: Normal. No hydronephrosis. No renal calculi or focal parenchymal lesions. The kidney measures 10.2 cm in maximum dimension. FREE FLUID: None. US/US abdomen limited IMPRESSION: Cholelithiasis without wall thickening. No pericholecystic fluid collection. Visualized CBD, right kidney is unremarkable. Pancreas is not optimally visualized.
[2021-09-18 10:19] VITALS: BP 106/61; PULSE 75; RESP 18; TEMP 37.7; O2SAT 100; BMI 23.3
--- NOTE | 2021-09-18 11:02 | ED_ITS ---
HPI - Abdominal Pain General Chief Complaint: Abdominal Pain Stated Complaint: Gallbladder issues Time Seen by Provider: 09/18/21 10:48 Source: patient Mode of arrival: ambulatory Limitations: no limitations History of Present Illness HPI narrative: 31-year-old male with a history of anemia, with recent admission in July for gallstones and biliary colic who presents to the ER with recurrent right upper quadrant pain and nausea that started yesterday. He reports the pain came on acutely when he was at work and he had to leave work. He reports the pain comes in waves and when it comes it is severe 10/10, causes him to be diaphoretic and extremely nauseous. Denies any episodes of vomiting or diarrhea. No fever or chills. He has not eaten red meat since his admission in July and has tried to be careful with his diet. He does admit to continuing to eat dairy and cheese. He was unable to follow-up with Dr. Pina after discharge due to insurance issues. MD elicited complaint: abdominal pain Pertinent past history: other (Gallstone) Onset (ago): day(s) (1) Pain Consistency: intermittent Location: RUQ Severity: severe Pain scale (0-10): 10 Quality: stabbing and sharp Radiation: epigastric Migration to: no migration Exacerbating factors: eating Relieving factors: nothing Context: history of similar episodes Associated symptoms: nausea Related Data Previous Rx's Medication Instructions Recorded levofloxacin 500 mg tablet 500 mg PO DAILY #6 tab 08/06/21 levothyroxine 100 mcg tablet 100 mcg PO DAILY 90 Days #90 tab 08/06/21 metronidazole 500 mg tablet 500 mg PO BID #12 tab 08/06/21 ondansetron 4 mg disintegrating 4 mg PO TID PRN #10 tab 09/18/21 tablet oxycodone 5 mg tablet 5 mg PO Q6H PRN #10 tab 09/18/21 Allergies Allergy/AdvReac Type Severity Reaction Status Date / Time No Known Allergies Allergy Verified 06/22/21 09:32 [No Known Allergies*] Review of Systems Review of Systems Constitutional: No Fever, No Chills ENT/Mouth: No sore throat, No Rhinorrhea, No Swallowing Difficulty Cardiovascular: No Chest Pain, No SOB Respiratory: No Cough, No Sputum Gastrointestinal: + Nausea, No Vomiting, No Diarrhea, + abdominal Pain, No Hematochezia, No Melena Genitourinary: No Dysuria, No Urinary Frequency, No Hematuria Musculoskeletal: No joint pain, No Myalgias Skin: No Skin Lesions, No rash Neuro: No Weakness, No Dizziness, No Headache Psych: + Anxiety/Panic, No Depression Heme/Lymph: No Bruising, No Lymphadenopathy [facility] Past Medical History Medical History (Updated 09/18/21 @ 12:08 by ASA Garrett) Chronic back pain Gallstones Herniated disc Hypothyroidism Pinched nerve Vitamin D deficiency Family History Family History Mother Diabetes Father Unknown family medical history Social History Social History Household Members: Significant Other Housing: Apartment Do you presently have visiting nurse or other home services: No Alcohol intake: former Patient Tobacco Use Status: Never used Tobacco Advance Directives: Yes Advance Directives on File: Yes Advance Directives Date on File: 08/08/21 service: No Current occupational status: unemployed Physical Exam ED Vital Signs: Vital Signs - 24 hr 09/18/21 10:19 Temperature 99.9 F Pulse Rate 75 Respiratory Rate 18 Blood Pressure 106/61 Pulse Oximetry 100 BMI result Body Mass Index 23.3 Appearance: Alert. Oriented X3. No acute distress. Eyes: Pupils equal, round and reactive to light. ENT: Pharynx normal. Neck: Normal inspection. Neck supple. CVS: Normal heart rate and rhythm. Pulses normal. Respiratory: No respiratory distress. Breath sounds normal. Abdomen: Soft with mild epigastgric and RUQ tenderness to deep palpation only, negative Ayala's sign. no RLQ tenderness. +BS x4 Skin: Skin warm and dry. Normal skin color. Normal skin turgor. No rashes. Extremities: No lower extremity edema. Neuro: Oriented X 3. No motor deficit. No sensory deficit. Course Course Course Narrative: 31-year-old male with known history of gallstones with recent admission for the same who presents to the ER with right upper quadrant abdominal pain and nausea that started yesterday. He has had no fevers or vomiting. Exam is negative Ayala sign. Doubt acute cholecystitis. Ultrasound and lab work are pending. P.o. pain meds and sublingual Zofran ordered. Will reassess. Reevaluation(s) Reevaluation #1: Ultrasound showing gallstones without any gallbladder wall thickening, no p ericholecystic fluid collection, normal common bile duct. There are multiple echogenic stones and in the neck of the gallbladder. This is most likely the cause of his pain. His LFTs are completely normal. No evidence of obstruction. He is feeling better after pain medication and Zofran. We discussed the results of his ultrasound is lab workup. He agrees to follow- up with Dr. Viramontes as for evaluation of elective cholecystectomy. Will provide short course of narcotics and antiemetics to treat this flare up. We discussed diet modifications. He is stable for discharge home with outpatient follow-up with General surgery. MDM - Abdominal Pain Lab Data Result diagrams: 09/18/21 11:35 09/18/21 11:35 Labs: Lab Results 09/18/21 09/18/21 09/18/21 Range/Units 11:35 11:35 11:35 WBC 10.2 (4.8-10.8) X10*3/uL RBC 4.37 L (4.60-5.80) X10*6/uL Hgb 13.2 L (14.0-18.0) g/dl Hct 39.9 L (42.0-52.0) % MCV 91.3 (80.0-98.0) fL MCH 30.2 (27.0-33.0) pg MCHC 33.1 (31.0-36.0) g/dl RDW 12.8 (11.0-16.0) % Plt Count 241 (160-400) X10*3/uL MPV 9.8 (9.4-12.4) fL Immature Gran % (Auto) 0.4 (0.0-0.4) % Neut % (Auto) 78.3 H (45-73) % Lymph % (Auto) 13.2 L (20-40) % [place] % (Auto) 7.4 (2-11) % Eos % (Auto) 0.5 (0-4) % Baso % (Auto) 0.2 (0-2) % Lymph # (Auto) 1.3 (1.2-4.9) X10*3/uL [place] # (Auto) 0.8 (0.1-1.2) X10*3/uL Eos # (Auto) 0.1 (0.0-0.4) X10*3/uL Baso # (Auto) 0.0 (0.0-0.2) X10*3/uL Abs Immat Gran (auto) 0.04 H (0.00-0.03) X10*3/uL Absolute Neuts (auto) 8.0 (2.0-8.3) x10*3/uL Absolute Nucleated RBC 0.000 (0.0-0.012) X10*3/uL Nucleated RBC % (auto) 0.0 (0.0-0.2) /100WBC Sodium 140 (135-145) mmol/L Potassium 4.1 (3.3-5.1) mmol/L Chloride 103 (96-108) mmol/L Carbon Dioxide 26 (22-29) mmol/L Anion Gap 15 (12-20) BUN 12 (9-16) mg/dL Creatinine 0.76 (0.5-1.4) mg/dL Estim Creat Clear Calc 115.7 Estimated GFR > 60 Random Glucose 81 (60-115) mg/dL Calcium 9.4 (8.4-10.2) mg/dL Magnesium 1.9 (1.6-2.6) mg/dL Total Bilirubin 0.8 (0.0-1.0) mg/dL Direct Bilirubin 0.4 (0.0-0.5) mg/dL AST 16 D (5-37) U/L ALT 15 (0-40) U/L Alkaline Phosphatase 71 D (39-117) U/L Total Protein 7.1 (6.5-8.0) g/dL Albumin 4.2 (3.5-5.0) g/dL Lipase 21 (8-78) U/L Critical Care Time Critical Care Time Critical Care Time: No Discharge Plan Discharge Clinical Impression: Biliary colic Patient Disposition: Home, Self-Care Instructions: Biliary Colic (ED), Gallstones (ED) Additional Instructions: Your ultrasound today showed gallstones but no obstruction or infection. Your lab work was normal. Recommend diet modification, stick to clear liquid diet and avoid fatty foods. Take the prescribed pain medication and nausea medication as needed. Recommend following up with the general surgeon this week for evaluation of elective gallbladder removal. If you develop new or worsening symptoms call 911 or come back to the ER for further evaluation. Prescriptions: New oxycodone 5 mg tablet 5 mg PO Q6H PRN (Reason: pain) Qty: 10 0RF ondansetron 4 mg tablet,disintegrating 4 mg PO TID PRN (Reason: nausea and vomiting) Qty: 10 0RF No Action metronidazole 500 mg Tablet 500 mg PO BID Qty: 12 0RF levofloxacin 500 mg tablet 500 mg PO DAILY Qty: 6 0RF levothyroxine 100 mcg tablet 100 mcg PO DAILY 90 Days Qty: 90 3RF Referrals: Tyler Pina MD [Physician] - 2 days (gallstones with recurrent colic, eval for lap kelsie) Stand Alone Forms: Work/School Release
[2021-09-18 11:39] LABS: MANUAL DIFF FLAG NO
[2021-09-18 11:41] LABS: Basophils Percent Auto 0.2 % (0-2); Eosinophils Absolute Auto 0.1 X10*3/uL (0.0-0.4); Eosinophils Percent Auto 0.5 % (0-4); Hematocrit 39.9 % (42.0-52.0); Hemoglobin 13.2 g/dl (14.0-18.0); Imm Gran Abs Auto 0.04 X10*3/uL (0.00-0.03); Imm Gran Pct Auto 0.4 % (0.0-0.4); Lymphocytes Absolute Auto 1.3 X10*3/uL (1.2-4.9); Lymphocytes Percent Auto 13.2 % (20-40); Mean Corpuscular HGB Conc 33.1 g/dl (31.0-36.0); Mean Corpuscular Hemoglobin 30.2 pg (27.0-33.0); Mean Corpuscular Volume 91.3 fL (80.0-98.0); Mean Platelet Volume 9.8 fL (9.4-12.4); Monocytes Absolute Auto 0.8 X10*3/uL (0.1-1.2); Monocytes Percent Auto 7.4 % (2-11); Neutrophils Percent Auto 78.3 % (45-73); Platelet Count 241 X10*3/uL (160-400); Red Blood Count 4.37 X10*6/uL (4.60-5.80); Red Cell Distribution Width 12.8 % (11.0-16.0); White Blood Count 10.2 X10*3/uL (4.8-10.8)
[2021-09-18] MEDS: Ondansetron ODT 4 MG TAB.RAPDIS TRANSLINGU (11:59)
[2021-09-18] MEDS: oxyCODONE HCl Immed Release 5 MG TABLET PO (11:59)
[2021-09-18 12:00] LABS: Lipase 21 U/L (8-78)
[2021-09-18 12:02] LABS: Alanine Aminotransferase 15 U/L (0-40); Albumin Level 4.2 g/dL (3.5-5.0); Alkaline Phosphatase 71 U/L (39-117); Anion Gap 15 (12-20); Aspartate Amino Transferase 16 U/L (5-37); Bilirubin Direct 0.4 mg/dL (0.0-0.5); Bilirubin Total 0.8 mg/dL (0.0-1.0); Blood Urea Nitrogen 12 mg/dL (9-16); Calcium 9.4 mg/dL (8.4-10.2); Carbon Dioxide 26 mmol/L (22-29); Chloride 103 mmol/L (96-108); Creatinine Clr Calc Pharmacy 115.7; Estimated Glomerular Filt Rate > 60; Glucose Random 81 mg/dL (60-115); Magnesium 1.9 mg/dL (1.6-2.6); Potassium 4.1 mmol/L (3.3-5.1); Sodium 140 mmol/L (135-145); Total Protein 7.1 g/dL (6.5-8.0)
[2021-09-18 12:27] VITALS: BP 95/55; PULSE 67; RESP 16; TEMP 36.9; O2SAT 100
== END 2021-09-18 12:36 | disposition home or self-care (01) ==
PROVIDERS: Physician Assistant; Emergency Provider Emergency Medicine Emergency Medical Services
DX: K80.50 Calculus of bile duct without cholangitis or cholecystitis without obstruction (principal); Z79.899 Other long term (current) drug therapy
CPT/HCPCS: 36415; 76705; 80048; 80076; 83690; 83735; 85025; 99284

== ENCOUNTER 2025-03-04 16:16 | Emergency (ER) | payer OTHER, SELFPAY ==
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
[2025-03-04 16:24] VITALS: BP 114/66; BP 160/90; PULSE 110; PULSE 95; RESP 20; TEMP 37.1; O2SAT 96; O2SAT 98; BMI 23.1
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
--- OUTSIDE RECORDS SUMMARY | 2025-03-04 16:59 | XMS_ITS | Clinical Summary ---
Author Organization [employer] Address [address] [place] [address] Care Team Providers Care Teletype Technician Name Role Phone Unavailable Primary Care Provider Unavailabl e Allergies No known active allergies Medications levothyroxine (Synthroid, Levoxyl) 100 MCG tablet TAKE 1 TABLET BY MOUTH EVERY DAY IN THE MORNING 30 MINUTES BEFORE BREAKFAST 3 Active Social History Tobacco Use Types Packs/Day Years Used Date Smoking Tobacco: Never Smokeless Tobacco: Never Tobacco Cessation:Counseling Given: Not Answered Sex and Gender Information Value Date Recorded Sex Assigned at Male 05/22/2022 10:27 AM EDT Legal Sex Male 10:27 AM EDT Gender Identity Choose not to disclose 10:27 AM EDT Sexual Orientation Choose not to disclose 2021 10:27 AM EDT Plan of Treatment Health Maintenance Due Date Last Done Comments Dental Oral Exam 1988 Dental Prophylaxis 1988 Dental X-Ray: Full Mouth 1988 Depression Screening 1988 HIV Screening 1988 Lipid Panel 1988 SDOH Screening 1988 Disability Screening 1988 Alcohol/Substance Use Screening 2000 Family Planning (PISQ) 2003 HPV Vaccines (1 - 3-dose series) 2003 Hepatitis C Screening 2006 Hepatitis B Vaccines (1 of 3 - 19+ 3-dose series) 2007 Tobacco Screening 08/16/2023 08/16/2022 Dental X-Ray: Bitewings 08/17/2023 08/16/2022 COVID-19 Vaccine (1 - 2023-2 5 season) 2024 Influenza Vaccine (#1) 2025 DTaP/Tdap/Td Vaccines (2 - T d or Tdap) 03/12/2029 03/12/2019 Zoster Vaccines (1 of 2) 2038 RSV Patients and Pa tients Aged 60 years or older (1 - 1-dose 75+ series) 2063 HIB Vaccines Aged Out No longer eligi ble based on patient's age to complete this topic Hepatitis A Vaccines Aged Out No long er eligible based on patient's age to complete this topic IPV Vaccines Aged Out No longer eligi ble based on patient's age to complete this topic Meningococcal B Vaccine Aged Out No l onger eligible based on patient's age to complete this topic Meningococcal Vaccine Aged Out No sienna denita eligible based on patient's age to complete this topic Pneumococcal Vaccine: Pediat rics (0 to 5 Years) and At-Risk Patients (6 to 49) Years Aged Out No longer eligi ble based on patient's age to complete this topic RSV under 20 months Aged Out No longe r eligible based on patient's age to complete this topic Rotavirus Vaccines Aged Out No longer eligible based on patient's age to complete this topic Procedures Procedure Name Priority Date/Time Associated Diagnosis Comments BITEWING - SINGLE RADIOGRAPHIC IMAGE Routine 08/16/2022 3:30 PM EST from Last 3 Months or Most Recently Relevant to Health Maintenance Insurance [facility] MEDICAID STAND ADULT
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
[2025-03-04 18:43] VITALS: BP 99/54; PULSE 69; RESP 16; O2SAT 95
[2025-03-04 20:29] VITALS: BP 101/56; PULSE 70; RESP 16; TEMP 37; O2SAT 95
== END 2025-03-04 20:30 | disposition home or self-care (01) ==
PROVIDERS: Emergency Provider Emergency Medicine Emergency Medical Services
DX: S13.4XXA Sprain of ligaments of cervical spine, initial encounter (principal); S43.101A Unspecified dislocation of right acromioclavicular joint, initial encounter; M54.2 Cervicalgia; M25.511 Pain in right shoulder; V43.52XA Car driver injured in collision with other type car in traffic accident, initial encounter; Y93.9 Activity, unspecified; Y92.410 Unspecified street and highway as the place of occurrence of the external cause; Y99.8 Other external cause status
CPT/HCPCS: 72125; 73030; 99284

== ENCOUNTER → 2025-03-04 17:21 | Outpatient (BNV) | payer OTHER, SELFPAY | PROVIDERS: Emergency Provider Emergency Medicine Emergency Medical Services; Visit Provider Radiology Diagnostic Radiology | DX: M54.2 Cervicalgia (principal); M25.511 Pain in right shoulder | CPT/HCPCS: 72125; 73030 ==